=== PATIENT | male | born 1950 | race American Indian/Alaskan Native ===

== ENCOUNTER 2018-09-12 10:00 | Outpatient (CLI) | payer MEDICARE ==
[2018-09-09 11:24] VITALS: BP 156/78
--- NOTE | 2018-09-09 13:34 | Anesthesia Consultation ---
Anesthesia Consult and Med Hx - Airway Anesthetic Teeth Evaluation: Poor, Partials ROM Head & Neck: Adequate Mental/Hyoid Distance: Adequate Mallampati Class: Class II Intubation Access Assessment: Possibly Difficult (large mckeon) - Pulmonary Exam CTA: Yes (diminshed bilaterally) - Cardiac Exam Cardiac Exam: RRR - Pre-Operative Health Status ASA Pre-Surgery Classification: ASA3 Proposed Anesthetic Plan: General Nerve Block: Adductor canal - Pulmonary Hx Smoking: Yes (STOPPED X 6 YRS) Hx Asthma: No Hx Respiratory Symptoms: No SOB: No Hx Sleep Apnea: No (BELTRAN PRE SCREEN HIGH RISK) - Cardiovascular System Hx Hypertension: Yes (instructed to take usual meds night before surgery and clonidine DOS) Hx Heart Attack/AMI: No Hx Percutaneous Transluminal Coronary Angioplasty (PTCA): No - Central Nervous System Hx Seizures: No CVA: No Hx Psychiatric Problems: No - Gastrointestinal Hx Gastroesophageal Reflux Disease: Yes - Endocrine Hx Renal Disease: No Hx Liver Disease: No Hx Insulin Dependent Diabetes: Yes (Takes 65units qHS. Instructed to take 40units night before surgery) Hx Thyroid Disease: No - Other Systems Hx Alcohol Use: No Hx Substance Use: No Hx Cancer: Yes (PROSTATE) Hx Obesity: Yes - Additional Comments Anesthesia Medical History Comments: No hx anesthetic complications.
[~2018-09-12 10:00] MED LIST: LACTATED RINGERS 1,000 ML IV SCH; VERSED IV NR
== END 2018-09-12 23:59 | disposition home or self-care (01) ==
LOC: LAB 10:00 → EDSTATUS 11:45 → LAB 23:59
PROVIDERS: ATTEND Orthopaedic Surgery
DX: I10 Essential (primary) hypertension (principal); E13.9 Other specified diabetes mellitus without complications; Z87.891 Personal history of nicotine dependence
CPT/HCPCS: 87116

== ENCOUNTER 2019-11-04 13:34 | Emergency (ER) | payer MEDICARE ==
--- NOTE | 2019-11-04 15:29 | Event Note ---
ED Screening Note Date of service: 11/04/19 Time: 15:28 ED Screening Note: 69 y o male presents cc of abd with vomitting x 2 days This initial assessment/diagnostic orders/clinical plan/treatment(s) is/are subject to change based on patients health status, clinical progression and re-assessment by fellow clinical providers in the ED. Further treatment and workup at subsequent clinical providers discretion. Patient/guardian urged not to elope from the ED as their condition may be serious if not clinically assessed and managed. Initial orders include: labs main eval
[2019-11-04 17:17] LABS: Basophils % (Auto) 0.2 % (0.0-1.8); Eosinophils # (Auto) 0.4 K/mm3 (0.0-0.4); Eosinophils % (Auto) 2.8 % (0.0-4.3); Hematocrit 35.3 % (35.5-45.6); Hemoglobin 11.8 gm/dl (11.8-15.2); Lymphocytes # (Auto) 1.4 K/mm3 (1.2-5.4); Lymphocytes % (Auto) 10.1 % (13.4-35.0); Mean Corpuscular HGB Conc 34 % (32-34); Mean Corpuscular Volume 90 fl (84-94); Monocytes # (Auto) 1.7 K/mm3 (0.0-0.8); Monocytes % (Auto) 11.6 % (0.0-7.3); Platelet Count 296 K/mm3 (140-440); Red Blood Count 3.93 M/mm3 (3.65-5.03); Red Cell Distribution Width 14.2 % (13.2-15.2)
[2019-11-04 17:33] LABS: Albumin 3.1 g/dL (3.9-5); Calcium 9.1 mg/dL (8.4-10.2)
[2019-11-04] MEDS ORDERED: cloNIDine 0.2 MG TAB PO ONE (20:09)
--- NOTE | 2019-11-04 23:22 | Emergency Department Report ---
HPI - General Chief Complaint: Nausea/Vomiting/Diarrhea Time Seen by Provider: 11/04/19 23:08 - HPI HPI: 69-year-old -[place] male presents to the emergency department with a complaint of a 5-day history of nausea, vomiting, diarrhea and hiccups. Patient also said that he had a subjective fever but that has since resolved. He has some mild abdominal soreness from the vomiting. He took some [id number] antidiarrheal medication for his symptoms. He has a past medical history of hypertension, diabetes, GERD, arthritis. The patient presents with very elevated blood pressure but admits that he did not take any of his 5 blood pressure medications this morning because he knew he was coming to the emergency department. His primary care physician is a Dr. Keith Pacheco. No sick contacts at home. No recent international travel. Currently the patient says that he is feeling improved. ED Past Medical Hx - Past Medical History Previous Medical History?: Yes Hx Hypertension: Yes (instructed to take usual meds night before surgery and clonidine DOS) Hx Heart Attack/AMI: No Hx Diabetes: Yes Hx GERD: Yes Hx Liver Disease: No Hx Renal Disease: No Hx Arthritis: Yes Hx Seizures: No Hx Asthma: No Hx HIV: No - Social History Smoking Status: Never Smoker Substance Use Type: None - Medications Home Medications: Home Medications Medication Instructions Recorded Confirmed Last Taken Type Lantus Solostar 65 units SQ BID 10/27/15 09/01/18 03/11/16 History glipiZIDE [Glucotrol] 10 mg PO QDAY 10/27/15 09/01/18 03/11/16 History amLODIPine [Norvasc] 10 mg PO DAILY 03/01/16 09/01/18 03/12/16 05:00 History lisinopriL [Zestril TAB] 40 mg PO DAILY 03/01/16 09/01/18 03/12/16 05:00 History Colchicine 0.6 mg PO PRN PRN 09/01/18 09/01/18 Unknown History Gabapentin [Neurontin] 600 mg PO DAILY 09/01/18 09/01/18 Unknown History Insulin Lispro [HumaLOG VIAL] 0 units SQ TID 09/01/18 09/01/18 Unknown History Metoprolol [Lopressor TAB] 50 mg PO BID 09/01/18 09/01/18 Unknown History Pioglitazone HCl [Actos] 30 mg PO DAILY 09/01/18 09/01/18 Unknown History Pravastatin [Pravachol] 40 mg PO QHS 09/01/18 09/01/18 Unknown History cloNIDine [Catapres] 0.2 mg PO BID 09/01/18 09/01/18 Unknown History hydroCHLOROthiazide [HCTZ] 25 mg PO QDAY 09/01/18 09/01/18 Unknown History Omeprazole 20 mg PO QDAY #20 capsule. 11/05/19 Unknown Rx Ondansetron [Zofran Odt] 4 mg PO Q8HR PRN #12 tab.rapdis 11/05/19 Unknown Rx ED Review of Systems ROS: Stated complaint: STOMACH VIRUS Other details as noted in HPI Comment: All other systems reviewed and negative Constitutional: denies: chills, fever Eyes: denies: eye pain, vision change ENT: denies: ear pain, throat pain Respiratory: denies: cough, shortness of breath Cardiovascular: denies: chest pain, palpitations Gastrointestinal: abdominal pain, nausea, vomiting, diarrhea Genitourinary: denies: dysuria, discharge Musculoskeletal: denies: back pain, arthralgia Skin: denies: rash, lesions Neurological: denies: headache, weakness Physical Exam - Physical Exam Vital Signs: Vital Signs 11/04/19 11/04/19 11/04/19 15:26 20:06 20:09 Temperature 97.8 F 98.8 F Pulse Rate 104 H 98 H Respiratory 20 20 Rate Blood Pressure 199/103 230/121 Blood Pressure 193/101 [Right] O2 Sat by Pulse 100 96 Oximetry 11/04/19 20:16 Temperature Pulse Rate 98 H Respiratory Rate Blood Pressure 230/121 Blood Pressure [Right] O2 Sat by Pulse Oximetry Physical Exam: GENERAL: The patient is well-developed well-nourished. HENT: Normocephalic. Atraumatic. Patient has moist mucous membranes. EYES: Extraocular motions are intact. NECK: Supple. Trachea is midline. CHEST/LUNGS: Clear to auscultation. There is no respiratory distress noted. HEART/CARDIOVASCULAR: Regular. There is no tachycardia. There is no murmur. ABDOMEN: Abdomen is soft, nontender. Patient has normal bowel sounds. SKIN: Skin is warm and dry. NEURO: The patient is awake, alert, and oriented. The patient is cooperative. The patient has no focal neurologic deficits. Normal speech. MUSCULOSKELETAL: There is no tenderness or deformity. There is no evidence of acute injury. ED Course Vital Signs 11/04/19 11/04/19 11/04/19 15:26 20:06 20:09 Temperature 97.8 F 98.8 F Pulse Rate 104 H 98 H Respiratory 20 20 Rate Blood Pressure 199/103 230/121 Blood Pressure 193/101 [Right] O2 Sat by Pulse 100 96 Oximetry 11/04/19 20:16 Temperature Pulse Rate 98 H Respiratory Rate Blood Pressure 230/121 Blood Pressure [Right] O2 Sat by Pulse Oximetry ED Medical Decision Making - Lab Data Result diagrams: 11/04/19 17:00 11/04/19 17:00 - Radiology Data Radiology results: image reviewed interpreted by me: Abdominal x-ray shows nonspecific nonobstructive bowel gas. - Medical Decision Making This patient presents with a 5-day history of some nausea, vomiting, diarrhea, intermittent abdominal pain and the patient complains of some hiccups. Patient has been in the emergency department for close to 11 hours. There is been no further nausea or vomiting. Since I have been seeing this patient there has not been any consistent hiccups. The patient also presented with extremely elevated blood pressure as he had not taken any of his 5 antihypertensive medications today. He received some clonidine through triage and his blood pres sure came down to a much more reasonable level. The patient's labs were mostly unremarkable except for some renal insufficiency and mild hypokalemia. He was given some potassium chloride. Abdominal x-ray shows nonspecific nonobstructive bowel gas. The patient was reevaluated multiple times her multiple hours and says he is feeling improved. He will be discharged home to follow-up with his primary care physician and has also been told that he will need to most likely see a teacher physically impaired. Patient will return to the emergency department with any worsening of his symptoms or any acute distress. He understands and agrees with the plan. Critical Care Time: No Critical care attestation.: If time is entered above; I have spent that time in minutes in the direct care of this critically ill patient, excluding procedure time. ED Disposition Clinical Impression: Renal insufficiency HTN (hypertension) Qualifiers: Hypertension type: essential hypertension Qualified Code(s): I10 - Essential (primary) hypertension Nausea & vomiting Qualifiers: Vomiting type: unspecified Vomiting Intractability: non-intractable Qualified Code(s): R11.2 - Nausea with vomiting, unspecified Diarrhea Qualifiers: Diarrhea type: unspecified type Qualified Code(s): R19.7 - Diarrhea, unspecified Abdominal pain Qualifiers: Abdominal location: epigastric Qualified Code(s): R10.13 - Epigastric pain Disposition: TO HOME OR SELFCARE Is pt being admited?: No Condition: Stable Instructions: Acute Nausea and Vomiting (ED), Acute Diarrhea (ED), Abdominal Pain (ED), Hypertension (ED) Additional Instructions: Please follow-up with your primary care physician in the next few days. Return to the emergency department with any worsening of your symptoms, intractable vomiting, or with any acute distress. Take your blood pressure medications as prescribed. Try and stay away from foods that are high in salt and caffeinated products. Keep a blood pressure log. Take your diabetes medications as prescribed. Please follow-up with a teacher physically impaired regarding your renal insufficiency. I have given you a referral for a local teacher physically impaired, Dr. Mae. Prescriptions: Omeprazole 20 mg PO QDAY #20 capsule. Ondansetron [Zofran Odt] 4 mg PO Q8HR PRN #12 tab.rapdis PRN Reason: Nausea Referrals: [facility] [Provider Group] - 3-5 Days YAZMIN PACHECO DO [Primary Care Provider] - 3-5 Days DESTINY MAE MD [Staff Physician] - 3-5 Days Time of Disposition: 00:55
[2019-11-04] MEDS ORDERED: POTASSIUM CHLORIDE ER 20 MEQ TAB PO ONE (23:25)
--- NOTE | 2019-11-05 00:45 | XRay Report ---
ABDOMEN 2 VIEWS INDICATION / CLINICAL INFORMATION: Abd pain. COMPARISON: None available. FINDINGS: BOWEL: No dilated bowel. FREE AIR / EXTRALUMINAL GAS: None seen. CALCIFICATIONS: No significant abnormal calcifications. ADDITIONAL FINDINGS: None. LUNGS: Visualized lungs show no significant abnormality. SKELETAL STRUCTURES: No significant abnormality. IMPRESSION: 1. No significant abnormality. Signer Name: Vinicio Velasquez MD Signed: 11/05/2019 12:41 AM Workstation Name: [id number]
[2019-11-05 01:16] VITALS: BP 166/98
== END 2019-11-05 01:21 | disposition home or self-care (01) ==
LOC: ED 13:34
DX: N28.9 Disorder of kidney and ureter, unspecified (principal); I10 Essential (primary) hypertension; R11.2 Nausea with vomiting, unspecified; R19.7 Diarrhea, unspecified; R10.9 Unspecified abdominal pain; E11.9 Type 2 diabetes mellitus without complications; K21.9 Gastro-esophageal reflux disease without esophagitis; M19.91 Primary osteoarthritis, unspecified site; Z79.899 Other long term (current) drug therapy; Z79.4 Long term (current) use of insulin
CPT/HCPCS: 36415; 74019; 80053; 82962; 83690; 85025

== ENCOUNTER 2020-12-08 22:53 | Inpatient (IN) | payer MEDICARE ==
[2020-12-09 00:05] LABS: Basophils # (Auto) 0.1 K/mm3 (0.0-0.1); Basophils % (Auto) 0.4 % (0.0-1.8); Eosinophils # (Auto) 0.1 K/mm3 (0.0-0.4); Eosinophils % (Auto) 0.8 % (0.0-4.3); Hematocrit 29.1 % (35.5-45.6); Hemoglobin 9.8 gm/dl (11.8-15.2); Lymphocytes # (Auto) 0.7 K/mm3 (1.2-5.4); Lymphocytes % (Auto) 5.1 % (13.4-35.0); Mean Corpuscular HGB Conc 34 % (32-34); Mean Corpuscular Volume 90 fl (84-94); Monocytes # (Auto) 0.9 K/mm3 (0.0-0.8); Monocytes % (Auto) 5.9 % (0.0-7.3); Platelet Count 208 K/mm3 (140-440); Red Blood Count 3.23 M/mm3 (3.65-5.03); Red Cell Distribution Width 14.8 % (13.2-15.2)
--- NOTE | 2020-12-09 00:14 | XRay Report ---
CHEST 2 VIEWS INDICATION: SUJEY. COMPARISON: None FINDINGS: SUPPORT DEVICES: None. HEART: Within normal limits. LUNGS/PLEURA: Mild patchy multifocal airspace disease with central peribronchial cuffing and a trace amount of fluid along the minor fissure. Findings could at least in part reflect underlying edema. No pleural effusion. No pneumothorax. ADDITIONAL FINDINGS: None. IMPRESSION: 1. Pulmonary findings as above. Signer Name: Henry Guajardo MD Signed: 12/09/2020 12:09 AM Workstation Name: [id number]
[2020-12-09 00:21] LABS: Albumin 3.9 g/dL (3.9-5)
[2020-12-09] MEDS ORDERED: FUROSEMIDE 40 MG/4 ML INJ IV ONE (01:12)
--- NOTE | 2020-12-09 01:14 | Emergency Department Report ---
ED Shortness of Breath HPI - General Chief Complaint: Dyspnea/Respdistress Stated Complaint: SUJEY/BODY FLUID Time Seen by Provider: 12/09/20 01:01 Source: patient Mode of arrival: Ambulatory Limitations: No Limitations - History of Present Illness Initial Comments: Patient is a 70-year-old male that presents emergency room with complaints of shortness of breath. Patient states he was eating fish and became short of breath. Patient states his symptoms started at 7 PM. Patient states he is also having dyspnea on exertion. Patient states his symptoms are better with rest and worse with exertion. Patient states he does not have a history of CHF but has history of hypertension, diabetes, chronic kidney disease stage III, insulin dependency, hyperlipidemia. Patient also complains of lower extremity swelling. Patient denies chest pain. Patient denies leg pain. Patient states he was having epigastric pain but that has resolved. Patient denies recent travel. Patient denies recent international travel. Patient denies exposure to the novel coronavirus. Patient denies sick contacts. Patient denies fever and chills. Patient denies cough. Patient denies diarrhea. Patient denies coming in contact with anybody with symptoms of the novel coronavirus. Complaint: shortness of breath -: Sudden Severity: severe Consistency: constant Improves With: rest Worsens With: exertion Known History Of: congestive heart failure Treatments Prior to Arrival: none - Related Data Home Oxygen Therapy: No Home Medications Medication Instructions Recorded Confirmed Last Taken Lantus Solostar 65 units SQ BID 10/27/15 09/01/18 03/11/16 glipiZIDE [Glucotrol] 10 mg PO QDAY 10/27/15 09/01/18 03/11/16 amLODIPine [Norvasc] 10 mg PO DAILY 03/01/16 09/01/18 03/12/16 05:00 lisinopriL [Zestril TAB] 40 mg PO DAILY 03/01/16 09/01/18 03/12/16 05:00 Colchicine 0.6 mg PO PRN PRN 09/01/18 09/01/18 Unknown Gabapentin [Neurontin] 600 mg PO DAILY 09/01/18 09/01/18 Unknown Insulin Lispro [HumaLOG VIAL] 0 units SQ TID 09/01/18 09/01/18 Unknown Metoprolol [Lopressor TAB] 50 mg PO BID 09/01/18 09/01/18 Unknown Pioglitazone HCl [Actos] 30 mg PO DAILY 09/01/18 09/01/18 Unknown Pravastatin [Pravachol] 40 mg PO QHS 09/01/18 09/01/18 Unknown cloNIDine [Catapres] 0.2 mg PO BID 09/01/18 09/01/18 Unknown hydroCHLOROthiazide [HCTZ] 25 mg PO QDAY 09/01/18 09/01/18 Unknown Previous Rx's Medication Instructions Recorded Last Taken Type Omeprazole 20 mg PO QDAY #20 capsule. 11/05/19 Unknown Rx Ondansetron [Zofran Odt] 4 mg PO Q8HR PRN #12 tab.rapdis 11/05/19 Unknown Rx Allergies Allergy/AdvReac Type Severity Reaction Status Date / Time No Known Allergies Allergy Verified 09/01/18 16:18 ED Review of Systems ROS: Stated complaint: SUJEY/BODY FLUID Other details as noted in HPI Constitutional: denies: chills, fever Eyes: denies: eye pain, eye discharge, vision change ENT: denies: ear pain, throat pain Respiratory: shortness of breath, SOB with exertion, SOB at rest. denies: cough, wheezing Cardiovascular: dyspnea on exertion. denies: chest pain, palpitations Endocrine: no symptoms reported Gastrointestinal: denies: abdominal pain, nausea, diarrhea Genitourinary: denies: urgency, dysuria Musculoskeletal: denies: back pain, joint swelling, arthralgia Skin: denies: rash, lesions Neurological: denies: headache, weakness, paresthesias Psychiatric: denies: anxiety, depression Hematological/Lymphatic: denies: easy bleeding, easy bruising ED Past Medical Hx - Past Medical History Previous Medical History?: Yes Hx Hypertension: Yes (instructed to take usual meds night before surgery and clonidine DOS) Hx Heart Attack/AMI: No Hx Diabetes: Yes Hx GERD: Yes Hx Liver Disease: No Hx Renal Disease: No Hx Arthritis: Yes Hx Seizures: No Hx Asthma: No Hx HIV: No - Surgical History Past Surgical History?: No - Family History Family history: no significant - Social History Smoking Status: Never Smoker Substance Use Type: None - Medications Home Medications: Home Medications Medication Instructions Recorded Confirmed Last Taken Type Lantus Solostar 65 units SQ BID 10/27/15 09/01/18 03/11/16 History glipiZIDE [Glucotrol] 10 mg PO QDAY 10/27/15 09/01/18 03/11/16 History amLODIPine [Norvasc] 10 mg PO DAILY 03/01/16 09/01/18 03/12/16 05:00 History lisinopriL [Zestril TAB] 40 mg PO DAILY 03/01/16 09/01/18 03/12/16 05:00 History Colchicine 0.6 mg PO PRN PRN 09/01/18 09/01/18 Unknown History Gabapentin [Neurontin] 600 mg PO DAILY 09/01/18 09/01/18 Unknown History Insulin Lispro [HumaLOG VIAL] 0 units SQ TID 09/01/18 09/01/18 Unknown History Metoprolol [Lopressor TAB] 50 mg PO BID 09/01/18 09/01/18 Unknown History Pioglitazone HCl [Actos] 30 mg PO DAILY 09/01/18 09/01/18 Unknown History Pravastatin [Pravachol] 40 mg PO QHS 09/01/18 09/01/18 Unknown History cloNIDine [Catapres] 0.2 mg PO BID 09/01/18 09/01/18 Unknown History hydroCHLOROthiazide [HCTZ] 25 mg PO QDAY 09/01/18 09/01/18 Unknown History Omeprazole 20 mg PO QDAY #20 capsule. 11/05/19 Unknown Rx Ondansetron [Zofran Odt] 4 mg PO Q8HR PRN #12 tab.rapdis 11/05/19 Unknown Rx ED Physical Exam - General Limitations: No Limitations General appearance: alert, in no apparent distress - Head Head exam: Present: atraumatic, normocephalic - Eye Eye exam: Present: normal appearance - ENT ENT exam: Present: mucous membranes moist - Neck Neck exam: Present: normal inspection - Respiratory Respiratory exam: Present: decreased breath sounds. Absent: respiratory distress - Cardiovascular Cardiovascular Exam: Present: regular rate, normal rhythm. Absent: systolic murmur, diastolic murmur, rubs, gallop - GI/Abdominal GI/Abdominal exam: Present: soft, normal bowel sounds - Rectal Rectal exam: Present: deferred - Extremities Exam Extremities exam: Present: normal inspection - Back Exam Back exam: Present: normal inspection - Neurological Exam Neurological exam: Present: alert, oriented X3 - Psychiatric Psychiatric exam: Present: normal affect, normal mood - Skin Skin exam: Present: warm, dry, intact, normal color. Absent: rash ED Course Vital Signs 12/08/20 12/09/20 12/09/20 23:15 01:16 01:31 Temperature 97.7 F 97.8 F Pulse Rate 83 77 78 Respiratory 18 21 22 Rate Blood Pressure 179/89 189/95 Blood Pressure 189/95 [Left] O2 Sat by Pulse 91 100 99 Oximetry 12/09/20 12/09/20 12/09/20 02:01 02:30 02:44 Temperature Pulse Rate 76 81 Respiratory 26 H Rate Blood Pressure 189/95 237/108 241/106 Blood Pressure [Left] O2 Sat by Pulse 100 92 Oximetry 12/09/20 04:38 Temperature 98.3 F Pulse Rate 82 Respiratory 32 H Rate Blood Pressure Blood Pressure 189/89 [Left] O2 Sat by Pulse 95 Oximetry - Reevaluation(s) Reevaluation #1: I discussed all results with patient. I discussed plan of care with patient. Patient agrees with plan of care and admission. Patient to be admitted to the hospitalist service. 12/09/20 02:01 - Consultations Consultation #1: Hospitalist consulted for admission. Hospitalist to admit patient. 12/09/20 02:07 Consultation #2: Infectious disease consulted. 12/09/20 05:27 - EJ/Peripheral Line Neck R Time Out Performed: Yes Indications: nurses unable to establis Skin Cleansed in Sterile Fashion: Yes Size: 18 Dressing Placed: Tegaderm, tape Patient Tolerated Procedure: well, no complications ED Medical Decision Making - Lab Data Result diagrams: 12/08/20 23:41 12/09/20 04:25 - EKG Data -: EKG Interpreted by Me EKG shows normal: sinus rhythm, intervals, QRS complexes, ST-T waves Rate: normal - EKG Data Interpretation: other (Left axis deviation) - Radiology Data Radiology results: report reviewed, image reviewed interpreted by me: Chest x-ray: Bilateral pneumonia and ChF changes, no pneumothorax, no foreign body, no osseous findings. CHEST 2 VIEWS INDICATION: SUJEY. COMPARISON: None FINDINGS: SUPPORT DEVICES: None. HEART: Within normal limits. LUNGS/PLEURA: Mild patchy multifocal airspace disease with central peribronchial cuffing and a trace amount of fluid along the minor fissure. Findings could at least in part reflect underlying edema. No pleural effusion. No pneumothorax. ADDITIONAL FINDINGS: None. IMPRESSION: 1. Pulmonary findings as above. - Medical Decision Making Patient is a 70-year-old male who presents emergency room with difficulty breathing and respiratory distress and hypoxia. Patient has a history of CHF. Patient found to have rales on initial evaluation. Patient in triage found to be hypoxic and placed on oxygen. Patient required oxygen throughout the ER stay. Patient had a chest x-ray which shows pulmonary edema and bilateral pneumonia. Patient had a Covid panel done. Patient's labs were essentially unremarkable except for elevated Covid markers and worsening acute on chronic renal failure, abnormal,, anemia, elevated WBC, elevated troponin. Troponin is most likely elevated secondary to renal. Patient admitted to the hospital service for further evaluation treatment into the intermediate ICU. While in ER, the nurses were unable to obtain a peripheral IV and a right EJ was placed. Critical care time documented due to the multiple reassessments, prolonged time at the bedside, interpretation of diagnostics and labs. - Differential Diagnosis CHF, new onset, renal failure, pneumonia, Covid, Critical Care Time: Yes Critical care time in (mins) excluding proc time.: 35 Critical care attestation.: If time is entered above; I have spent that time in minutes in the direct care of this critically ill patient, excluding procedure time. Critical Care Time: 35 MINUTES ED Disposition Clinical Impression: SOB (shortness of breath) Respiratory failure Qualifiers: Chronicity: acute Respiratory failure complication: hypoxia Qualified Code(s): J96.01 - Acute respiratory failure with hypoxia Renal failure (ARF), acute on chronic Qualifiers: Acute renal failure type: unspecified Chronic kidney disease stage: unspecified stage Qualified Code(s): N17.9 - Acute kidney failure, unspecified; N18.9 - Chronic kidney disease, unspecified Pneumonia Qualifiers: Pneumonia type: due to unspecified organism Laterality: bilateral Lung location: unspecified part of lung Qualified Code(s): J18.9 - Pneumonia, unspecified organism CHF (congestive heart failure) Qualifiers: Heart failure type: unspecified Heart failure chronicity: acute on chronic Qualified Code(s): I50.9 - Heart failure, unspecified Disposition: 09 OP ADMIT IP TO THIS HOSP Is pt being admited?: Yes Does the pt Need Aspirin: No Condition: Critical Time of Disposition: 01:25
[2020-12-09] MEDS ORDERED: COLCHICINE 0.6 MG PO PRN (02:06)
[2020-12-09] MEDS ORDERED: hydrALAZINE 20 MG/1 ML INJ IV PRN ×2 (02:10→09:30)
[2020-12-09] MEDS ORDERED: DEXTROSE 50% IN WATER (25GM) 50 ML SYRINGE IV PRN (02:11)
--- NOTE | 2020-12-09 02:16 | History and Physical Report ---
History of Present Illness Date of examination: 12/09/20 Date of admission: 12/09/20 Chief complaint: Shortness of breath History of present illness: 70-year-old male with past medical history of hypertension, diabetes, chronic kidney disease stage III, hyperlipidemia was brought to the emergency room with complaints of shortness of breath. Patient states he was eating fish and became short of breath. Patient states his symptoms started at 7 PM. Patient denies any history of CHF. Patient states he is also having dyspnea on exertion. Patient states his symptoms are better with rest and worse with exertion. Patient also complains of lower extremity swelling. Patient denies chest pain. Patient denies leg pain. Patient states he was having epigastric pain but that has resolved. In the emergency room patient is found to have acute CHF exacerbation. Also patient troponin is 0.108 Past History Past Medical History: diabetes, hypertension, hyperlipidemia, renal failure Medications and Allergies Allergies Allergy/AdvReac Type Severity Reaction Status Date / Time No Known Allergies Allergy Verified 09/01/18 16:18 Home Medications Medication Instructions Recorded Confirmed Last Taken Type Lantus Solostar 65 units SQ BID 10/27/15 09/01/18 03/11/16 History glipiZIDE [Glucotrol] 10 mg PO QDAY 10/27/15 09/01/18 03/11/16 History amLODIPine [Norvasc] 10 mg PO DAILY 03/01/16 09/01/18 03/12/16 05:00 History lisinopriL [Zestril TAB] 40 mg PO DAILY 03/01/16 09/01/18 03/12/16 05:00 History Colchicine 0.6 mg PO PRN PRN 09/01/18 09/01/18 Unknown History Gabapentin [Neurontin] 600 mg PO DAILY 09/01/18 09/01/18 Unknown History Insulin Lispro [HumaLOG VIAL] 0 units SQ TID 09/01/18 09/01/18 Unknown History Metoprolol [Lopressor TAB] 50 mg PO BID 09/01/18 09/01/18 Unknown History Pioglitazone HCl [Actos] 30 mg PO DAILY 09/01/18 09/01/18 Unknown History Pravastatin [Pravachol] 40 mg PO QHS 09/01/18 09/01/18 Unknown History cloNIDine [Catapres] 0.2 mg PO BID 09/01/18 09/01/18 Unknown History hydroCHLOROthiazide [HCTZ] 25 mg PO QDAY 09/01/18 09/01/18 Unknown History Omeprazole 20 mg PO QDAY #20 capsule. 11/05/19 Unknown Rx Ondansetron [Zofran Odt] 4 mg PO Q8HR PRN #12 tab.rapdis 11/05/19 Unknown Rx Active Meds: Active Medications Amlodipine Besylate (Amlodipine 5 Mg Tab) 10 mg PO DAILY [facility] Aspirin (Aspirin 325 Mg Tab) 325 mg PO QDAY [facility] Atorvastatin Calcium (Atorvastatin 40 Mg Tab) 40 mg PO QHS [facility] Clonidine HCl (Clonidine 0.2 Mg Tab) 0.2 mg PO BID [facility] Dextrose (Dextrose 50% In Water (25gm) 50 Ml Syringe) 50 ml IV Q30MIN PRN; Protocol PRN Reason: Hypoglycemia Furosemide (Furosemide 40 Mg/4 Ml Inj) 40 mg IV BID@0600,1800 [facility] Glipizide (Glipizide 10 Mg Tab) 10 mg PO QDAY [facility] Heparin Sodium (Porcine) (Heparin 5,000 Unit/1 Ml Vial) 5,000 unit SUB-Q Q8HR [facility] Hydralazine HCl (Hydralazine 20 Mg/1 Ml Inj) 10 mg IV Q6H PRN PRN Reason: htn Hydrochlorothiazide (Hydrochlorothiazide 25 Mg Tab) 25 mg PO QDAY [facility] Insulin Human Lispro (Insulin Lispro 100 Unit/Ml) 0 unit SUB-Q ACHS [facility]; Protocol Lisinopril (Lisinopril 20 Mg Tab) 40 mg PO DAILY [facility] Metoprolol Tartrate (Metoprolol Tartrate 50 Mg Tab) 50 mg PO BID [facility] Miscellaneous Medication (Colchicine) 0.6 mg PO PRN PRN PRN Reason: Pain, Moderate (4-6) Miscellaneous Medication (Gabapentin [Neurontin]) 600 mg PO DAILY [facility] Miscellaneous Medication (Lantus Solostar) 65 units SQ BID [facility] Pantoprazole Sodium (Pantoprazole 40 Mg Tab) 40 mg PO QDAC [facility] Review of Systems Cardiovascular: orthopnea, edema, shortness of breath, dyspnea on exertion Respiratory: shortness of breath, dyspnea on exertion Exam - Constitutional Vitals: Temp Pulse Resp BP Pulse Ox 97.8 F 77 21 189/95 100 12/09/20 01:16 12/09/20 01:16 12/09/20 01:16 12/09/20 01:16 12/09/20 01:16 General appearance: Present: no acute distress, well-nourished - EENT Eyes: Present: PERRL ENT: hearing intact, clear oral mucosa - Neck Neck: Present: supple, normal ROM - Respiratory Respiratory effort: normal Respiratory: bilateral: rales - Cardiovascular Heart Sounds: Present: S1 & S2. Absent: rub, click - Extremities Extremities: pulses symmetrical Extremity abnormal: edema Peripheral Pulses: within normal limits - Abdominal General gastrointestinal: Present: soft, non-tender, non-distended, normal bowel sounds Male genitourinary: Present: normal - Integumentary Integumentary: Present: clear, warm, dry - Musculoskeletal Musculoskeletal: gait normal, strength equal bilaterally - Psychiatric Psychiatric: appropriate mood/affect, intact judgment & insight - Neurologic Neurologic: CNII-XII intact, moves all extremities HEART Score - HEART Score Age: > 65 Risk factors: > 3 risk factors or hx of atherosclerotic disease Troponin: Troponin T 0.108 ng/mL (0.00-0.029) H* 12/08/20 23:41 Troponin: 1-3x normal limit Results - Labs CBC & Chem 7: 12/08/20 23:41 12/08/20 23:41 Labs: Laboratory Last Values WBC 14.4 K/mm3 (4.5-11.0) H 12/08/20 23:41 RBC 3.23 M/mm3 (3.65-5.03) L 12/08/20 23:41 Hgb 9.8 gm/dl (11.8-15.2) L 12/08/20 23:41 Hct 29.1 % (35.5-45.6) L 12/08/20 23:41 MCV 90 fl (84-94) 12/08/20 23:41 MCH 30 pg (28-32) 12/08/20 23:41 MCHC 34 % (32-34) 12/08/20 23:41 RDW 14.8 % (13.2-15.2) 12/08/20 23:41 Plt Count 208 K/mm3 (140-440) 12/08/20 23:41 Lymph % (Auto) 5.1 % (13.4-35.0) L 12/08/20 23:41 [place] % (Auto) 5.9 % (0.0-7.3) 12/08/20 23:41 Eos % (Auto) 0.8 % (0.0-4.3) 12/08/20 23:41 Baso % (Auto) 0.4 % (0.0-1.8) 12/08/20 23:41 Lymph # (Auto) 0.7 K/mm3 (1.2-5.4) L 12/08/20 23:41 [place] # (Auto) 0.9 K/mm3 (0.0-0.8) H 12/08/20 23:41 Eos # (Auto) 0.1 K/mm3 (0.0-0.4) 12/08/20 23:41 Baso # (Auto) 0.1 K/mm3 (0.0-0.1) 12/08/20 23:41 Seg Neutrophils % 87.8 % (40.0-70.0) H 12/08/20 23:41 Seg Neutrophils # 12.6 K/mm3 (1.8-7.7) H 12/08/20 23:41 Sodium 138 mmol/L (137-145) 12/08/20 23:41 Potassium 4.5 mmol/L (3.6-5.0) 12/08/20 23:41 Chloride 105.6 mmol/L (98-107) 12/08/20 23:41 Carbon Dioxide 20 mmol/L (22-30) L 12/08/20 23:41 Anion Gap 17 mmol/L 12/08/20 23:41 BUN 36 mg/dL (9-20) H 12/08/20 23:41 Creatinine 4.1 mg/dL (0.8-1.3) H 12/08/20 23:41 Estimated GFR 17 ml/min 12/08/20 23:41 BUN/Creatinine Ratio 9 % 12/08/20 23:41 Glucose 247 mg/dL (75-100) H 12/08/20 23:41 Calcium 8.0 mg/dL (8.4-10.2) L 12/08/20 23:41 Total Bilirubin 0.20 mg/dL (0.1-1.2) 12/08/20 23:41 AST 49 units/L (5-40) H 12/08/20 23:41 ALT 60 units/L (7-56) H 12/08/20 23:41 Alkaline Phosphatase 93 units/L (35-129) 12/08/20 23:41 Troponin T 0.108 ng/mL (0.00-0.029) H* 12/08/20 23:41 Total Protein 7.5 g/dL (6.3-8.2) 12/08/20 23:41 Albumin 3.9 g/dL (3.9-5) 12/08/20 23:41 Albumin/Globulin Ratio 1.1 % 12/08/20 23:41 - Imaging and Cardiology Chest x-ray: image reviewed Assessment and Plan VTE prophylaxis?: Chemical Plan of care discussed with patient/family: Yes - Patient Problems (1) CHF (congestive heart failure) Current Visit: Yes Status: Acute Qualifiers: Heart failure type: unspecified Heart failure chronicity: acute Qualified Code(s): I50.9 - Heart failure, unspecified Plan to address problem: Admit the patient to the medical telemetry. Put the patient on CHF pathway. Lasix 40 mg IV every 12 hours. Fluid restriction. DuoNeb by nebulizer every 4 hours as needed. Will maintain intake and output chart. Echocardiogram. We consulted cardiology for evaluation (2) Elevated troponin Current Visit: Yes Status: Acute Plan to address problem: Aspirin 325 mg p.o. daily. Lipitor 40 mg p.o. daily. We do the serial cardiac enzyme. We also do echocardiogram and consult cardiology for further evaluation and treatment. Heparin 5000 units subcu every 8 hours (3) Renal failure (ARF), acute on chronic Current Visit: Yes Status: Acute Qualifiers: Acute renal failure type: unspecified Chronic kidney disease stage: unspecified stage Qualified Code(s): N17.9 - Acute kidney failure, unspecified; N18.9 - Chronic kidney disease, unspecified Plan to address problem: We avoid nephrotoxic drugs. Reconsult nephrology for evaluation. Recheck BMP in the morning (4) SOB (shortness of breath) Current Visit: Yes Status: Acute Plan to address problem: Put the patient on CHF pathway. Lasix 40 mg IV every 12 hours. Fluid rest riction. DuoNeb by nebulizer every 4 hours as needed. Will maintain intake and output chart. Echocardiogram. We consulted cardiology for evaluation (5) Diabetes 1.5, managed as type 2 Current Visit: No Status: Chronic Plan to address problem: We will put the patient insulin sliding scale. We will continue the home Lantus. Recheck BMP in the morning. Diabetic education (6) HTN (hypertension) Current Visit: No Status: Chronic Qualifiers: Hypertension type: essential hypertension Qualified Code(s): I10 - Essential (primary) hypertension Plan to address problem: Hydralazine 10 mg IV every 6 hours as needed. We will continue the home hype rtension medication. We monitor the blood pressure closely (7) DVT prophylaxis Current Visit: Yes Status: Acute Plan to address problem: Heparin 5000 units subcu every 8 hours for DVT prophylaxis. Protonix 40 mg p.o. daily for GI prophylaxis. Patient is a full code
[2020-12-09] MEDS ORDERED: cefTRIAXone/NS 2 GM/100 ML 2 GM/100 ML BAG IV ONE (02:24)
[2020-12-09] MEDS ORDERED: dexAMETHasone 4 MG/ML VIAL IV ONE (02:25)
[2020-12-09] MEDS ORDERED: COLCHICINE 0.6 MG TAB PO PRN (02:25)
[2020-12-09] MEDS ORDERED: hydrALAZINE 20 MG/1 ML INJ IV ONE (02:34)
[2020-12-09 02:56] LABS: Chol/HDL Ratio 4.29 %
[2020-12-09] MEDS ORDERED: AZITHROMYCIN/NS 500 MG/250 ML 500 MG/250 ML BAG IV SCH (03:00)
[2020-12-09] MEDS: FUROSEMIDE 40 MG/4 ML INJ IV SCH ×2 (05:32→17:03)
[2020-12-09] MEDS: HEPARIN 5,000 UNIT/1 ML VIAL SUB-Q SCH ×3 (05:33→22:47)
[2020-12-09 05:35] LABS: C-Reactive Protein 1.2 mg/dL (0.00-1.30)
--- NOTE | 2020-12-09 08:35 | Electrocardiograph Report ---
[facility] Test Date: 2020-12-08 Test Time: 23:29:39 Pat Name: KIANA KAHN Department: Room: A264 1 Gender: M Tetryl Wringer Operator: [id number] : [id number] Requested By: MARIE GORDON III Order Number: [id number] Reading MD: Rudolph Verdin Measurements Intervals [place] Rate: 80 P: 62 WY: 187 QRS: -32 QRSD: 92 T: 118 QT: 408 QTc: 469 Interpretive Statements Sinus rhythm Left axis deviation Abnormal T, consider ischemia, lateral leads No previous ECG available for comparison Electronically Signed On 12-09-2020 8:35:44 EDT by Rudolph Verdin
[2020-12-09] MEDS: INSULIN GLARGINE 100 UNITS/ML SUB-Q SCH ×2 (09:07→22:47)
[2020-12-09] MEDS: glipiZIDE 10 MG TAB PO SCH (09:08)
[2020-12-09] MEDS: ASPIRIN 325 MG TAB PO SCH (09:08)
[2020-12-09] MEDS: PANTOPRAZOLE 40 MG TAB PO SCH (09:08)
[2020-12-09] MEDS: METOPROLOL TARTRATE 50 MG TAB PO SCH ×2 (09:08→22:46)
[2020-12-09] MEDS: GABAPENTIN 300 MG CAP PO SCH (09:09)
[2020-12-09] MEDS: INSULIN LISPRO 100 UNIT/ML SUB-Q SCH ×4 (09:09→22:47)
[2020-12-09] MEDS: amLODIPine 10 MG TAB PO SCH (09:09)
--- NOTE | 2020-12-09 09:09 | Progress Note ---
Assessment and Plan Assessment and plan: --Acute hypoxic respiratory failure requiring BiPAP Current Visit: Yes Status: Acute due to fluid overload versus pneumonia IV diuretics, oxygen titrate O2 sats more than 90% BiPAP as needed, DC empiric antibiotics, procalcitonin levels below ID following, consult pulmonary if needed --Possible CHF (congestive heart failure) Current Visit: Yes Status: Acute IV diuretics, input output monitoring, daily weights Low-sodium diet, water restriction Cardiology consult, follow echocardiogram LV function ejection fraction --Nonspecific elevated troponin Current Visit: Yes Status: Acute Serial cardiac enzymes, treat the underlying cause congestive heart failure; fluid overload Cardiology --Acute on chronic kidney disease stage III Current Visit: Yes Status: Acute Vasomotor nephropathy Monitoring function avoid nephrotoxins, gentle hydration Nephrology consulted -- SOB (shortness of breath) Current Visit: Yes Status: Acute Put the patient on CHF pathway. Lasix 40 mg IV every 12 hours. Fluid restriction. DuoNeb by nebulizer every 4 hours as needed. Will maintain intake and output chart. Echocardiogram. 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 We will continue the home Lantus. Recheck BMP in the morning. Diabetic education --Morbid obesity; BMI 40.8 Current Visit: Yes Status: Acute diet modification, exercise as tolerated and weight reduction When medically stable -- HTN (hypertension) Current Visit: No Status: Chronic Plan to address problem: Hydralazine 10 mg IV every 6 hours as needed. We will continue the home hypertension medication. We monitor the blood pressure closely --Full CODE STATUS; --DVT prophylaxis Current Visit: Yes Status: Acute Plan to address problem: Heparin 5000 units subcu every 8 hours for DVT prophylaxis. Closely monitor the patient and adjust the management as needed Plan of care reviewed with the patient and his nurse Critical care time 45 minutes History Interval history: I have seen and examined the patient at the bedside in [facility] this morning Patient's chart and medications reviewed Patient is morbidly obese, complains of shortness of breath, in mild distress PUI on contact and droplet isolation Vital signs reviewed Hospitalist Physical - Constitutional Vitals: Temp Pulse Resp BP Pulse Ox 98.4 F 79 18 191/90 100 12/09/20 07:38 12/09/20 08:32 12/09/20 08:32 12/09/20 08:32 12/09/20 08:32 General appearance: Present: no acute distress, well-nourished - EENT Eyes: Present: PERRL, EOM intact - Neck Neck: Present: supple, normal ROM - Respiratory Respiratory effort: normal Respiratory: bilateral: diminished, rales, negative: rhonchi, wheezing - Cardiovascular Rhythm: regular Heart Sounds: Present: S1 & S2 - Extremities Extremities: no ischemia Extremity abnormal: edema - Abdominal General gastrointestinal: soft, non-tender, non-distended, normal bowel sounds - Integumentary Integumentary: Present: clear, warm - Psychiatric Psychiatric: appropriate mood/affect, cooperative - Neurologic Neurologic: moves all extremities HEART Score - HEART Score Age: > 65 Risk factors: > 3 risk factors or hx of atherosclerotic disease Troponin: Troponin T 0.108 ng/mL (0.00-0.029) H* 12/08/20 23:41 Troponin: 1-3x normal limit Results - Labs CBC & Chem 7: 12/08/20 23:41 12/09/20 09:53 Labs: Laboratory Last Values WBC 14.4 K/mm3 (4.5-11.0) H 12/08/20 23:41 RBC 3.23 M/mm3 (3.65-5.03) L 12/08/20 23:41 Hgb 9.8 gm/dl (11.8-15.2) L 12/08/20 23:41 Hct 29.1 % (35.5-45.6) L 12/08/20 23:41 MCV 90 fl (84-94) 12/08/20 23:41 MCH 30 pg (28-32) 12/08/20 23:41 MCHC 34 % (32-34) 12/08/20 23:41 RDW 14.8 % (13.2-15.2) 12/08/20 23:41 Plt Count 208 K/mm3 (140-440) 12/08/20 23:41 Lymph % (Auto) 5.1 % (13.4-35.0) L 12/08/20 23:41 [place] % (Auto) 5.9 % (0.0-7.3) 12/08/20 23:41 Eos % (Auto) 0.8 % (0.0-4.3) 12/08/20 23:41 Baso % (Auto) 0.4 % (0.0-1.8) 12/08/20 23:41 Lymph # (Auto) 0.7 K/mm3 (1.2-5.4) L 12/08/20 23:41 [place] # (Auto) 0.9 K/mm3 (0.0-0.8) H 12/08/20 23:41 Eos # (Auto) 0.1 K/mm3 (0.0-0.4) 12/08/20 23:41 Baso # (Auto) 0.1 K/mm3 (0.0-0.1) 12/08/20 23:41 Seg Neutrophils % 87.8 % (40.0-70.0) H 12/08/20 23:41 Seg Neutrophils # 12.6 K/mm3 (1.8-7.7) H 12/08/20 23:41 D-Dimer 722.42 ng/mlDDU (0-234) H 12/09/20 04:25 Sodium 138 mmol/L (137-145) 12/08/20 23:41 Potassium 4.5 mmol/L (3.6-5.0) 12/08/20 23:41 Chloride 105.6 mmol/L (98-107) 12/08/20 23:41 Carbon Dioxide 20 mmol/L (22-30) L 12/08/20 23:41 Anion Gap 17 mmol/L 12/08/20 23:41 BUN 36 mg/dL (9-20) H 12/08/20 23:41 Creatinine 4.1 mg/dL (0.8-1.3) H 12/08/20 23:41 Estimated GFR 17 ml/min 12/08/20 23:41 BUN/Creatinine Ratio 9 % 12/08/20 23:41 Glucose 225 mg/dL (75-100) H 12/09/20 04:25 Calcium 8.0 mg/dL (8.4-10.2) L 12/08/20 23:41 Ferritin 195.4 ng/mL (30.0-300.0) 12/09/20 04:25 Total Bilirubin 0.20 mg/dL (0.1-1.2) 12/08/20 23:41 AST 49 units/L (5-40) H 12/08/20 23:41 ALT 60 units/L (7-56) H 12/08/20 23:41 Alkaline Phosphatase 93 units/L (35-129) 12/08/20 23:41 Lactate Dehydrogenase 345 units/L (91-180) H 12/09/20 04:25 Troponin T 0.108 ng/mL (0.00-0.029) H* 12/08/20 23:41 C-Reactive Protein 1.20 mg/dL (0.00-1.30) 12/09/20 04:25 Total Protein 7.5 g/dL (6.3-8.2) 12/08/20 23:41 Albumin 3.9 g/dL (3.9-5) 12/08/20 23:41 Albumin/Globulin Ratio 1.1 % 12/08/20 23:41 Triglycerides 176 mg/dL (2-149) H 12/08/20 23:41 Cholesterol 202 mg/dL (50-199) H 12/08/20 23:41 LDL Cholesterol Direct 128 mg/dL (50-130) 12/08/20 23:41 HDL Cholesterol 47 mg/dL (40-59) 12/08/20 23:41 Cholesterol/HDL Ratio 4.29 % 12/08/20 23:41 Active Medications - Current Medications Current Medications: Generic Name Dose Route Start Last Admin Trade Name Freq PRN Reason Stop Dose Admin Amlodipine Besylate 10 mg 12/09/20 10:00 Amlodipine 10 Mg Tab PO DAILY [facility] Aspirin 325 mg 12/09/20 10:00 Aspirin 325 Mg Tab PO QDAY [facility] Atorvastatin Calcium 40 mg 12/09/20 22:00 Atorvastatin 40 Mg Tab PO QHS [facility] Clonidine HCl 0.2 mg 12/09/20 10:00 Clonidine 0.2 Mg Tab PO BID [facility] Colchicine 0.6 mg 12/09/20 02:25 Colchicine 0.6 Mg Tab PO QDAY PRN Gout pain Dextrose 50 ml 12/09/20 02:11 Dextrose 50% In Water (25gm) 50 Ml Syringe IV Q30MIN PRN Hypoglycemia Protocol Furosemide 40 mg 12/09/20 06:00 12/09/20 05:32 Furosemide 40 Mg/4 Ml Inj IV 40 mg BID@0600,1800 [facility] Administration Gabapentin 600 mg 12/09/20 10:00 Gabapentin 300 Mg Cap PO DAILY [facility] Glipizide 10 mg 12/09/20 08:00 Glipizide 10 Mg Tab PO QDDIAB [facility] Heparin Sodium (Porcine) 5,000 unit 12/09/20 06:00 12/09/20 05:33 Heparin 5,000 Unit/1 Ml Vial SUB-Q 5,000 unit Q8HR [facility] Administration Hydralazine HCl 10 mg 12/09/20 02:10 Hydralazine 20 Mg/1 Ml Inj IV Q6H PRN htn Hydrochlorothiazide 25 mg 12/09/20 10:00 Hydrochlorothiazide 25 Mg Tab PO QDAY [facility] Azithromycin 500 mg in 250 mls @ 250 mls/hr 12/09/20 03:00 12/09/20 03:57 Zithromax/Ns IV 250 mls/hr Q24H [facility] Administration Insulin Glargine 65 units 12/09/20 10:00 Insulin Glargine 100 Units/Ml SUB-Q BID [facility] Insulin Human Lispro 0 unit 12/09/20 07:30 Insulin Lispro 100 Unit/Ml SUB-Q ACHS [facility] Protocol Metoprolol Tartrate 50 mg 12/09/20 10:00 Metoprolol Tartrate 50 Mg Tab PO BID [facility] Pantoprazole Sodium 40 mg 12/09/20 07:30 Pantoprazole 40 Mg Tab PO QDAC [facility]
[2020-12-09] MEDS: cloNIDine 0.2 MG TAB PO SCH ×2 (09:12→22:46)
[2020-12-09] MEDS ORDERED: INSULIN GLARGINE SQ SCH (10:00)
[2020-12-09] MEDS ORDERED: hydroCHLOROthiazide 25 MG TAB PO SCH (10:00)
[2020-12-09] MEDS ORDERED: LISINOPRIL 20 MG TAB PO SCH (10:00)
[2020-12-09] MEDS ORDERED: NON-FORMULARY EACH (Gabapentin [Neurontin] 600 MG Tablet) PO SCH (10:00)
[2020-12-09 10:28] LABS: Calcium 8.4 mg/dL (8.4-10.2)
--- NOTE | 2020-12-09 11:37 | Consultation ---
History of Present Illness Consult date: 12/09/20 Consult reason: elevated troponin History of present illness: 70-year old male who is admitted for shortness of breath after eating fish. It is unclear if his shortness of breath were related to fish or seafood allergy. Chest x-ray reports patchy airspace disease and is undergoing workup for suspected COVID 19. Currently he is on Bipap therapy, history is unobtainable. A cardiac consultation has been requested for elevated troponin. Initial labs shows multiple metabolic abnormalities including renal failure with a creatinine 4.4, and uncontrolled diabetes, blood glucose of 247. Troponin at 0.108. There were no report of chest pain or palpitations. No reports of prior cardiac history. An ECG done is sinus rhythm, no acute ischemic changes. Past History Past Medical History: diabetes, hypertension, hyperlipidemia, renal failure Medications and Allergies Allergies Allergy/AdvReac Type Severity Reaction Status Date / Time No Known Allergies Allergy Verified 09/01/18 16:18 Home Medications Medication Instructions Recorded Confirmed Last Taken Type Lantus Solostar 65 units SQ BID 10/27/15 09/01/18 03/11/16 History glipiZIDE [Glucotrol] 10 mg PO QDAY 10/27/15 09/01/18 03/11/16 History amLODIPine [Norvasc] 10 mg PO DAILY 03/01/16 09/01/18 03/12/16 05:00 History lisinopriL [Zestril TAB] 40 mg PO DAILY 03/01/16 09/01/18 03/12/16 05:00 History Colchicine 0.6 mg PO PRN PRN 09/01/18 09/01/18 Unknown History Gabapentin [Neurontin] 600 mg PO DAILY 09/01/18 09/01/18 Unknown History Insulin Lispro [HumaLOG VIAL] 0 units SQ TID 09/01/18 09/01/18 Unknown History Metoprolol [Lopressor TAB] 50 mg PO BID 09/01/18 09/01/18 Unknown History Pioglitazone HCl [Actos] 30 mg PO DAILY 09/01/18 09/01/18 Unknown History Pravastatin [Pravachol] 40 mg PO QHS 09/01/18 09/01/18 Unknown History cloNIDine [Catapres] 0.2 mg PO BID 09/01/18 09/01/18 Unknown History hydroCHLOROthiazide [HCTZ] 25 mg PO QDAY 09/01/18 09/01/18 Unknown History Omeprazole 20 mg PO QDAY #20 capsule. 11/05/19 Unknown Rx Ondansetron [Zofran Odt] 4 mg PO Q8HR PRN #12 tab.rapdis 11/05/19 Unknown Rx Active Meds: Active Medications Amlodipine Besylate (Amlodipine 10 Mg Tab) 10 mg PO DAILY [facility] Last Admin: 12/09/20 09:09 Dose: 10 mg Documented by: Aspirin (Aspirin 325 Mg Tab) 325 mg PO QDAY [facility] Last Admin: 12/09/20 09:08 Dose: 325 mg Documented by: Atorvastatin Calcium (Atorvastatin 40 Mg Tab) 40 mg PO QHS [facility] Clonidine HCl (Clonidine 0.2 Mg Tab) 0.2 mg PO BID [facility] Last Admin: 12/09/20 09:12 Dose: 0.2 mg Documented by: Colchicine (Colchicine 0.6 Mg Tab) 0.6 mg PO QDAY PRN PRN Reason: Gout pain Dextrose (Dextrose 50% In Water (25gm) 50 Ml Syringe) 50 ml IV Q30MIN PRN; Protocol PRN Reason: Hypoglycemia Furosemide (Furosemide 40 Mg/4 Ml Inj) 40 mg IV BID@0600,1800 [facility] Last Admin: 12/09/20 05:32 Dose: 40 mg Documented by: Gabapentin (Gabapentin 300 Mg Cap) 600 mg PO DAILY [facility] Last Admin: 12/09/20 09:09 Dose: 600 mg Documented by: Glipizide (Glipizide 10 Mg Tab) 10 mg PO QDDIAB [facility] Last Admin: 12/09/20 09:08 Dose: 10 mg Documented by: Heparin Sodium (Porcine) (Heparin 5,000 Unit/1 Ml Vial) 5,000 unit SUB-Q Q8HR [facility] Last Admin: 12/09/20 05:33 Dose: 5,000 unit Documented by: Hydralazine HCl (Hydralazine 25 Mg Tab) 50 mg PO Q8HR [facility] Hydralazine HCl (Hydralazine 20 Mg/1 Ml Inj) 10 mg IV Q4H PRN PRN Reason: htn Hydrochlorothiazide (Hydrochlorothiazide 25 Mg Tab) 25 mg PO QDAY [facility] Last Admin: 12/09/20 09:08 Dose: 25 mg Documented by: Azithromycin (Zithromax/Ns) 500 mg in 250 mls @ 250 mls/hr IV Q24H [facility] Last Admin: 12/09/20 03:57 Dose: 250 mls/hr Documented by: Insulin Glargine (Insulin Glargine 100 Units/Ml) 65 units SUB-Q BID [facility] Last Admin: 12/09/20 09:07 Dose: 65 units Documented by: Insulin Human Lispro (Insulin Lispro 100 Unit/Ml) 0 unit SUB-Q ACHS [facility]; Protocol Last Admin: 12/09/20 09:09 Dose: 3 unit Documented by: Metoprolol Tartrate (Metoprolol Tartrate 50 Mg Tab) 50 mg PO BID [facility] Last Admin: 12/09/20 09:08 Dose: 50 mg Documented by: Pantoprazole Sodium (Pantoprazole 40 Mg Tab) 40 mg PO QDAC [facility] Last Admin: 12/09/20 09:08 Dose: 40 mg Documented by: Review of Systems Cardiovascular: other (on bipap) Physical Examination Vital Signs Temp Pulse Resp BP Pulse Ox 97.7 F 83 24 179/89 91 12/08/20 23:15 12/08/20 23:15 12/08/20 23:15 12/08/20 23:15 12/08/20 23:15 General appearance: other (on Bipap therapy) Cardiac: Positive: Reg Rate and Rhythm Results 12/08/20 23:41 12/09/20 09:53 Cardiac Enzymes 12/08/20 12/09/20 Range/Units 23:41 04:25 AST 49 H (5-40) units/L Lactate Dehydrogenase 345 H (91-180) units/L Lipids 12/08/20 Range/Units 23:41 Triglycerides 176 H (2-149) mg/dL Cholesterol 202 H (50-199) mg/dL HDL Cholesterol 47 (40-59) mg/dL Cholesterol/HDL Ratio 4.29 % CBC 12/08/20 Range/Units 23:41 WBC 14.4 H (4.5-11.0) K/mm3 RBC 3.23 L (3.65-5.03) M/mm3 Hgb 9.8 L (11.8-15.2) gm/dl Hct 29.1 L (35.5-45.6) % Plt Count 208 (140-440) K/mm3 Lymph # (Auto) 0.7 L (1.2-5.4) K/mm3 [place] # (Auto) 0.9 H (0.0-0.8) K/mm3 Eos # (Auto) 0.1 (0.0-0.4) K/mm3 Baso # (Auto) 0.1 (0.0-0.1) K/mm3 Comprehensive Metabolic Panel 12/08/20 12/09/20 12/09/20 Range/Units 23:41 04:25 09:53 Sodium 138 138 (137-145) mmol/L Potassium 4.5 4.9 (3.6-5.0) mmol/L Chloride 105.6 105.6 (98-107) mmol/L Carbon Dioxide 20 L 20 L (22-30) mmol/L BUN 36 H 40 H (9-20) mg/dL Creatinine 4.1 H 4.4 H (0.8-1.3) mg/dL Glucose 247 H 225 H 226 H (75-100) mg/dL Calcium 8.0 L 8.4 (8.4-10.2) mg/dL AST 49 H (5-40) units/L ALT 60 H (7-56) units/L Alkaline Phosphatase 93 (35-129) units/L Total Protein 7.5 (6.3-8.2) g/dL Albumin 3.9 (3.9-5) g/dL Assessment and Plan Elevated troponin Shortness of breath after eating fish COVID-19 test result is pending Hypertension, uncontrolled Renal failure Diabetes, uncontrolled
--- NOTE | 2020-12-09 15:00 | Consultation ---
History of Present Illness - Reason for Consult Consult date: 12/09/20 - History of Present Illness 70-year-old man past medical history hypertension, diabetes, CKD brought to hospital complaining shortness of breath. He notes it was sudden onset of the day of admission while eating dinner. He also complains of lower extremity edema as well. Otherwise no issue such as fevers, sweats, chills. Afebrile since admission with a white count of 14.4. Covid testing pending. Procalcitonin normal. GFR 16. No cultures available for review. Currently on azithromycin requiring BiPAP. Imaging personally reviewed: Chest x-ray: Mild patchy multifocal airspace disease Review of systems: Deferred to reduce to the risk of transmission of COVID-19 Past History Past Medical History: diabetes, hypertension, hyperlipidemia, renal failure Medications and Allergies Allergies Allergy/AdvReac Type Severity Reaction Status Date / Time No Known Allergies Allergy Verified 09/01/18 16:18 Home Medications Medication Instructions Recorded Confirmed Last Taken Type Lantus Solostar 65 units SQ BID 10/27/15 09/01/18 03/11/16 History glipiZIDE [Glucotrol] 10 mg PO QDAY 10/27/15 09/01/18 03/11/16 History amLODIPine [Norvasc] 10 mg PO DAILY 03/01/16 09/01/18 03/12/16 05:00 History lisinopriL [Zestril TAB] 40 mg PO DAILY 03/01/16 09/01/18 03/12/16 05:00 History Colchicine 0.6 mg PO PRN PRN 09/01/18 09/01/18 Unknown History Gabapentin [Neurontin] 600 mg PO DAILY 09/01/18 09/01/18 Unknown History Insulin Lispro [HumaLOG VIAL] 0 units SQ TID 09/01/18 09/01/18 Unknown History Metoprolol [Lopressor TAB] 50 mg PO BID 09/01/18 09/01/18 Unknown History Pioglitazone HCl [Actos] 30 mg PO DAILY 09/01/18 09/01/18 Unknown History Pravastatin [Pravachol] 40 mg PO QHS 09/01/18 09/01/18 Unknown History cloNIDine [Catapres] 0.2 mg PO BID 09/01/18 09/01/18 Unknown History hydroCHLOROthiazide [HCTZ] 25 mg PO QDAY 09/01/18 09/01/18 Unknown History Omeprazole 20 mg PO QDAY #20 capsule. 11/05/19 Unknown Rx Ondansetron [Zofran Odt] 4 mg PO Q8HR PRN #12 tab.rapdis 11/05/19 Unknown Rx Active Meds: Active Medications Amlodipine Besylate (Amlodipine 10 Mg Tab) 10 mg PO DAILY [facility] Last Admin: 12/09/20 09:09 Dose: 10 mg Documented by: Aspirin (Aspirin 325 Mg Tab) 325 mg PO QDAY [facility] Last Admin: 12/09/20 09:08 Dose: 325 mg Documented by: Atorvastatin Calcium (Atorvastatin 40 Mg Tab) 40 mg PO QHS [facility] Clonidine HCl (Clonidine 0.2 Mg Tab) 0.2 mg PO BID [facility] Last Admin: 12/09/20 09:12 Dose: 0.2 mg Documented by: Colchicine (Colchicine 0.6 Mg Tab) 0.6 mg PO QDAY PRN PRN Reason: Gout pain Dextrose (Dextrose 50% In Water (25gm) 50 Ml Syringe) 50 ml IV Q30MIN PRN; Protocol PRN Reason: Hypoglycemia Furosemide (Furosemide 40 Mg/4 Ml Inj) 40 mg IV BID@0600,1800 [facility] Last Admin: 12/09/20 05:32 Dose: 40 mg Documented by: Gabapentin (Gabapentin 300 Mg Cap) 600 mg PO DAILY [facility] Last Admin: 12/09/20 09:09 Dose: 600 mg Documented by: Glipizide (Glipizide 10 Mg Tab) 10 mg PO QDDIAB [facility] Last Admin: 12/09/20 09:08 Dose: 10 mg Documented by: Heparin Sodium (Porcine) (Heparin 5,000 Unit/1 Ml Vial) 5,000 unit SUB-Q Q8HR [facility] Last Admin: 12/09/20 05:33 Dose: 5,000 unit Documented by: Hydralazine HCl (Hydralazine 25 Mg Tab) 50 mg PO Q8HR [facility] Hydralazine HCl (Hydralazine 20 Mg/1 Ml Inj) 10 mg IV Q4H PRN PRN Reason: htn Hydrochlorothiazide (Hydrochlorothiazide 25 Mg Tab) 25 mg PO QDAY [facility] Last Admin: 12/09/20 09:08 Dose: 25 mg Documented by: Azithromycin (Zithromax/Ns) 500 mg in 250 mls @ 250 mls/hr IV Q24H [facility] Stop: 12/13/20 03:59 Last Admin: 12/09/20 03:57 Dose: 250 mls/hr Documented by: Insulin Glargine (Insulin Glargine 100 Units/Ml) 65 units SUB-Q BID [facility] Last Admin: 12/09/20 09:07 Dose: 65 units Documented by: Insulin Human Lispro (Insulin Lispro 100 Unit/Ml) 0 unit SUB-Q ACHS [facility]; Protocol Last Admin: 12/09/20 12:24 Dose: 3 unit Documented by: Metoprolol Tartrate (Metoprolol Tartrate 50 Mg Tab) 50 mg PO BID [facility] Last Admin: 12/09/20 09:08 Dose: 50 mg Documented by: Pantoprazole Sodium (Pantoprazole 40 Mg Tab) 40 mg PO QDAC [facility] Last Admin: 12/09/20 09:08 Dose: 40 mg Documented by: Physical Examination - Physical Exam Narrative exam: Physical exam deferred to reduce risk of transmission of COVID-19. Please refer to primary team's note. - Constitutional Vitals: Vital Signs Temp Pulse Resp BP Pulse Ox 98.1 F 60 9 L 127/67 100 12/09/20 12:23 12/09/20 13:20 12/09/20 13:20 12/09/20 13:20 12/09/20 13:20 Temperature -Last 24 Hours Temperature 98.1 F Temperature 98.4 F Temperature 97.9 F Temperature 98.3 F Temperature 97.8 F Temperature 97.7 F Results - Labs CBC & Chem 7: 12/08/20 23:41 12/09/20 09:53 Labs: Abnormal lab results 12/08/20 12/08/20 12/09/20 Range/Units 23:41 23:41 04:25 WBC 14.4 H (4.5-11.0) K/mm3 RBC 3.23 L (3.65-5.03) M/mm3 Hgb 9.8 L (11.8-15.2) gm/dl Hct 29.1 L (35.5-45.6) % Lymph % (Auto) 5.1 L (13.4-35.0) % Lymph # (Auto) 0.7 L (1.2-5.4) K/mm3 [place] # (Auto) 0.9 H (0.0-0.8) K/mm3 Seg Neutrophils % 87.8 H (40.0-70.0) % Seg Neutrophils # 12.6 H (1.8-7.7) K/mm3 D-Dimer 722.42 H (0-234) ng/mlDDU Carbon Dioxide 20 L (22-30) mmol/L BUN 36 H (9-20) mg/dL Creatinine 4.1 H (0.8-1.3) mg/dL Glucose 247 H (75-100) mg/dL POC Glucose (70-105) mg/dL Calcium 8.0 L (8.4-10.2) mg/dL AST 49 H (5-40) units/L ALT 60 H (7-56) units/L Lactate Dehydrogenase (91-180) units/L Troponin T 0.108 H* (0.00-0.029) ng/mL Triglycerides 176 H (2-149) mg/dL Cholesterol 202 H (50-199) mg/dL 12/09/20 12/09/20 12/09/20 Range/Units 04:25 08:05 09:53 WBC (4.5-11.0) K/mm3 RBC (3.65-5.03) M/mm3 Hgb (11.8-15.2) gm/dl Hct (35.5-45.6) % Lymph % (Auto) (13.4-35.0) % Lymph # (Auto) (1.2-5.4) K/mm3 [place] # (Auto) (0.0-0.8) K/mm3 Seg Neutrophils % (40.0-70.0) % Seg Neutrophils # (1.8-7.7) K/mm3 D-Dimer (0-234) ng/mlDDU Carbon Dioxide 20 L (22-30) mmol/L BUN 40 H (9-20) mg/dL Creatinine 4.4 H (0.8-1.3) mg/dL Glucose 225 H 226 H (75-100) mg/dL POC Glucose 205 H (70-105) mg/dL Calcium (8.4-10.2) mg/dL AST (5-40) units/L ALT (7-56) units/L Lactate Dehydrogenase 345 H (91-180) units/L Troponin T (0.00-0.029) ng/mL Triglycerides (2-149) mg/dL Cholesterol (50-199) mg/dL Assessment and Plan Cultures: Covid PCR: Pending. A/P: 70-year-old man past medical history hypertension, diabetes, CKD admitted with acute respiratory failure #Acute hypoxemic respiratory failure: Secondary to fluid overload versus pneumonia. Currently on BiPAP. Pending COVID-19. Normal procalcitonin. #KIMBERLEY on CKD: Renally dose medications. #Covid PUI: Follow-up PCR #Diabetes: tight glycemic control for best outcomes. Recs: -Follow-up Covid PCR -Okay to stop antibiotics given normal procalcitonin. -If Covid positive would start dexamethasone -Follow-up echo read Thank you for the consult, we will continue to follow. MD Yevgeniy [facility] O: [phone] F: [phone]
[2020-12-09] MEDS: hydrALAZINE 25 MG TAB PO SCH ×2 (15:11→22:46)
--- NOTE | 2020-12-09 16:57 | Consultation ---
History of Present Illness - Reason for Consult Consult date: 12/09/20 acute renal failure, chronic renal failure - History of Present Illness History obtained from patient and patient's daughter (Susi Steele) Mr. Luevano is a 70yo with hypertension, type II DM and CKD. He reports dx of CKD appx 2 years ago and has been under the care of Dr. Geoff RENEE) for appx 6 months. Patient reports that there have been discussion at prior visits re: dialysis if patient's blood pressure remains uncontrolled. However, details of patient's level of function is unknown. Daughter reports that patient recently presented to his PCP for medical clearance for dental work. Medical clearance was requested due to uncontrolled hypertension. At PCP office, patient was noted to have a weight gain of 25lbs in less than a month. He was advised to follow up with his PCP. He presented to the ED last night with acute onset of vomiting and difficulty breathing. Mr. Luevano denies chest pain, orthopnea, fevers, chills. He reports 2 week hx of progressive leg swelling. Past History Past Medical History: diabetes, hypertension, hyperlipidemia, renal failure Medications and Allergies Allergies Allergy/AdvReac Type Severity Reaction Status Date / Time No Known Allergies Allergy Verified 09/01/18 16:18 Home Medications Medication Instructions Recorded Confirmed Last Taken Type Lantus Solostar 65 units SQ BID 10/27/15 09/01/18 03/11/16 History glipiZIDE [Glucotrol] 10 mg PO QDAY 10/27/15 09/01/18 03/11/16 History amLODIPine [Norvasc] 10 mg PO DAILY 03/01/16 09/01/18 03/12/16 05:00 History lisinopriL [Zestril TAB] 40 mg PO DAILY 03/01/16 09/01/18 03/12/16 05:00 History Colchicine 0.6 mg PO PRN PRN 09/01/18 09/01/18 Unknown History Gabapentin [Neurontin] 600 mg PO DAILY 09/01/18 09/01/18 Unknown History Insulin Lispro [HumaLOG VIAL] 0 units SQ TID 09/01/18 09/01/18 Unknown History Metoprolol [Lopressor TAB] 50 mg PO BID 09/01/18 09/01/18 Unknown History Pioglitazone HCl [Actos] 30 mg PO DAILY 09/01/18 09/01/18 Unknown History Pravastatin [Pravachol] 40 mg PO QHS 09/01/18 09/01/18 Unknown History cloNIDine [Catapres] 0.2 mg PO BID 09/01/18 09/01/18 Unknown History hydroCHLOROthiazide [HCTZ] 25 mg PO QDAY 09/01/18 09/01/18 Unknown History Omeprazole 20 mg PO QDAY #20 capsule. 11/05/19 Unknown Rx Ondansetron [Zofran Odt] 4 mg PO Q8HR PRN #12 tab.rapdis 11/05/19 Unknown Rx Active Meds: Active Medications Amlodipine Besylate (Amlodipine 10 Mg Tab) 10 mg PO DAILY [facility] Last Admin: 12/09/20 09:09 Dose: 10 mg Documented by: Aspirin (Aspirin 325 Mg Tab) 325 mg PO QDAY [facility] Last Admin: 12/09/20 09:08 Dose: 325 mg Documented by: Atorvastatin Calcium (Atorvastatin 40 Mg Tab) 40 mg PO QHS [facility] Clonidine HCl (Clonidine 0.2 Mg Tab) 0.2 mg PO BID [facility] Last Admin: 12/09/20 09:12 Dose: 0.2 mg Documented by: Colchicine (Colchicine 0.6 Mg Tab) 0.6 mg PO QDAY PRN PRN Reason: Gout pain Dextrose (Dextrose 50% In Water (25gm) 50 Ml Syringe) 50 ml IV Q30MIN PRN; Protocol PRN Reason: Hypoglycemia Furosemide (Furosemide 40 Mg/4 Ml Inj) 40 mg IV BID@0600,1800 [facility] Last Admin: 12/09/20 05:32 Dose: 40 mg Documented by: Gabapentin (Gabapentin 300 Mg Cap) 600 mg PO DAILY [facility] Last Admin: 12/09/20 09:09 Dose: 600 mg Documented by: Glipizide (Glipizide 10 Mg Tab) 10 mg PO QDDIAB [facility] Last Admin: 12/09/20 09:08 Dose: 10 mg Documented by: Heparin Sodium (Porcine) (Heparin 5,000 Unit/1 Ml Vial) 5,000 unit SUB-Q Q8HR [facility] Last Admin: 12/09/20 15:11 Dose: 5,000 unit Documented by: Hydralazine HCl (Hydralazine 25 Mg Tab) 50 mg PO Q8HR [facility] Last Admin: 12/09/20 15:11 Dose: 50 mg Documented by: Hydralazine HCl (Hydralazine 20 Mg/1 Ml Inj) 10 mg IV Q4H PRN PRN Reason: htn Hydrochlorothiazide (Hydrochlorothiazide 25 Mg Tab) 25 mg PO QDAY [facility] Last Admin: 12/09/20 09:08 Dose: 25 mg Documented by: Insulin Glargine (Insulin Glargine 100 Units/Ml) 65 units SUB-Q BID [facility] Last Admin: 12/09/20 09:07 Dose: 65 units Documented by: Insulin Human Lispro (Insulin Lispro 100 Unit/Ml) 0 unit SUB-Q ACHS [facility]; Protocol Last Admin: 12/09/20 12:24 Dose: 3 unit Documented by: Metoprolol Tartrate (Metoprolol Tartrate 50 Mg Tab) 50 mg PO BID [facility] Last Admin: 12/09/20 09:08 Dose: 50 mg Documented by: Pantoprazole Sodium (Pantoprazole 40 Mg Tab) 40 mg PO QDAC [facility] Last Admin: 12/09/20 09:08 Dose: 40 mg Documented by: Review of Systems All systems: negative Exam - Vital Signs Vital signs: Vital Signs Temp Pulse Resp BP Pulse Ox 97.7 F 83 24 179/89 91 12/08/20 23:15 12/08/20 23:15 12/08/20 23:15 12/08/20 23:15 12/08/20 23:15 - General Appearance General appearance: well-developed, well-nourished EENT: ATNC Respiratory: Decreased Breath Sounds Heart: regular, S1S2 Gastrointestinal: Present: normal. Absent: tenderness, distended Integumentary: no rash, warm and dry Musculoskeletal: Present: other (2+ edema) Psychiatric: cooperative Results - Lab Results 12/08/20 23:41 12/09/20 09:53 Most recent lab results Calcium 8.4 mg/dL (8.4-10.2) 12/09/20 09:53 Assessment and Plan Impression: * Acute kidney injury on chronic kidney disease --Baseline renal function unknown; followed by Dr. Tellez * Acute hypoxic respiratory failure --COVID 19 negative * Hypertension * Type II DM * Metabolic acidosis Plan: * Renal prognosis is guarded. No acute indication for renal replacement therapy at this time. * Continue IV diuresis * Strict I/O - discussed with RN, condom catheter ordered * Will obtain UA and UPCR * Obtain ANCA, C3, C4, SIFE * Obtain renal ultrasound * Cardiology consultation reviewed * TTE pending * Dose medications for renal function * AM labs
[2020-12-10] MEDS: FUROSEMIDE 40 MG/4 ML INJ IV SCH ×2 (05:40→17:44)
[2020-12-10] MEDS: HEPARIN 5,000 UNIT/1 ML VIAL SUB-Q SCH ×3 (05:40→22:12)
[2020-12-10 05:48] LABS: Calcium 8.4 mg/dL (8.4-10.2)
[2020-12-10] MEDS: hydrALAZINE 25 MG TAB PO SCH ×3 (06:09→22:04)
--- NOTE | 2020-12-10 09:18 | Progress Note ---
Assessment and Plan Assessment and plan: --Acute hypoxic respiratory failure requiring BiPAP Current Visit: Yes Status: Acute due to fluid overload versus pneumonia IV diuretics, oxygen titrate O2 sats more than 90% BiPAP as needed, DC empiric antibiotics, procalcitonin levels below ID following, consult pulmonary if needed --Type II diabetes melitis Current Visit: No Status: Chronic Plan to address problem: Patient is on very high doses of insulin and oral hypoglycemics Hold oral hypoglycemics, reduce Lantus dose --Hypoglycemia; will hold oral hypoglycemics glipizide Closely monitor blood sugars, reduce the dose of Lantus --Possible CHF (congestive heart failure) Current Visit: Yes Status: Acute IV diuretics, input output monitoring, daily weights Low-sodium diet, water restriction Cardiology consult, follow echocardiogram LV function ejection fraction --Nonspecific elevated troponin Current Visit: Yes Status: Acute Serial cardiac enzymes, treat the underlying cause congestive heart failure; fluid overload Cardiology --Acute on chronic kidney disease stage III Current Visit: Yes Status: Acute Vasomotor nephropathy Monitoring function avoid nephrotoxins, gentle hydration Nephrology consulted --Morbid obesity; BMI 40.8 Current Visit: Yes Status: Acute diet modification, exercise as tolerated and weight reduction When medically stable -- HTN (hypertension) Current Visit: No Status: Chronic Plan to address problem: Hydralazine 10 mg IV every 6 hours as needed. We will continue the home hypertension medication. We monitor the blood pressure closely --Full CODE STATUS; --DVT prophylaxis Current Visit: Yes Status: Acute Plan to address problem: Heparin 5000 units subcu every 8 hours for DVT prophylaxis. Closely monitor the patient and adjust the management as needed Plan of care reviewed with the patient and his nurse Critical care time 45 minutes We will closely monitor the patient and adjust management as needed Plan of care reviewed with the patient and his nurse Will transition to telemetry in 1 to 2 hours if stable DC planning per case management 12/10; hypoglycemia episode, decrease Lantus dose, DC glipizide Closely monitor blood pressures and blood sugars Transfer out of MICU to telemetry History Interval history: I have seen and examined the patient at the bedside in [facility] Patient's chart and medications reviewed Patient feels slightly better, on nasal cannula oxygen saturating well However had an hypoglycemia episode with blood sugars in 50s to 60s Patient is on very high dose of Lantus 65 units times twice a day Denies any chest pain nausea or vomiting Vital signs noted Hospitalist Physical - Constitutional Vitals: Temp Pulse Resp BP Pulse Ox 98.8 F 60 10 L 120/64 100 12/10/20 04:02 12/10/20 08:00 12/10/20 08:00 12/10/20 08:00 12/10/20 08:41 General appearance: Present: no acute distress, well-nourished - EENT Eyes: Present: PERRL, EOM intact - Neck Neck: Present: supple, normal ROM - Respiratory Respiratory effort: normal Respiratory: bilateral: diminished, negative: rales, rhonchi, wheezing - Cardiovascular Rhythm: regular Heart Sounds: Present: S1 & S2 - Extremities Extremities: no ischemia, No edema - Abdominal General gastrointestinal: soft, non-tender, non-distended, normal bowel sounds - Integumentary Integumentary: Present: clear, warm - Psychiatric Psychiatric: appropriate mood/affect, cooperative - Neurologic Neurologic: moves all extremities HEART Score - HEART Score Age: > 65 Risk factors: > 3 risk factors or hx of atherosclerotic disease Troponin: Troponin T 0.108 ng/mL (0.00-0.029) H* 12/08/20 23:41 Troponin: 1-3x normal limit Results - Labs CBC & Chem 7: 12/08/20 23:41 12/10/20 04:38 Labs: Laboratory Last Values WBC 14.4 K/mm3 (4.5-11.0) H 12/08/20 23:41 RBC 3.23 M/mm3 (3.65-5.03) L 12/08/20 23:41 Hgb 9.8 gm/dl (11.8-15.2) L 12/08/20 23:41 Hct 29.1 % (35.5-45.6) L 12/08/20 23:41 MCV 90 fl (84-94) 12/08/20 23:41 MCH 30 pg (28-32) 12/08/20 23:41 MCHC 34 % (32-34) 12/08/20 23:41 RDW 14.8 % (13.2-15.2) 12/08/20 23:41 Plt Count 208 K/mm3 (140-440) 12/08/20 23:41 Lymph % (Auto) 5.1 % (13.4-35.0) L 12/08/20 23:41 [place] % (Auto) 5.9 % (0.0-7.3) 12/08/20 23:41 Eos % (Auto) 0.8 % (0.0-4.3) 12/08/20 23:41 Baso % (Auto) 0.4 % (0.0-1.8) 12/08/20 23:41 Lymph # (Auto) 0.7 K/mm3 (1.2-5.4) L 12/08/20 23:41 [place] # (Auto) 0.9 K/mm3 (0.0-0.8) H 12/08/20 23:41 Eos # (Auto) 0.1 K/mm3 (0.0-0.4) 12/08/20 23:41 Baso # (Auto) 0.1 K/mm3 (0.0-0.1) 12/08/20 23:41 Seg Neutrophils % 87.8 % (40.0-70.0) H 12/08/20 23:41 Seg Neutrophils # 12.6 K/mm3 (1.8-7.7) H 12/08/20 23:41 D-Dimer 722.42 ng/mlDDU (0-234) H 12/09/20 04:25 Sodium 138 mmol/L (137-145) 12/10/20 04:38 Potassium 4.3 mmol/L (3.6-5.0) 12/10/20 04:38 Chloride 105.0 mmol/L (98-107) 12/10/20 04:38 Carbon Dioxide 23 mmol/L (22-30) 12/10/20 04:38 Anion Gap 14 mmol/L 12/10/20 04:38 BUN 46 mg/dL (9-20) H 12/10/20 04:38 Creatinine 4.6 mg/dL (0.8-1.3) H 12/10/20 04:38 Estimated GFR 15 ml/min 12/10/20 04:38 BUN/Creatinine Ratio 10 % 12/10/20 04:38 Glucose 56 mg/dL (75-100) L 12/10/20 04:38 POC Glucose 182 mg/dL (70-105) H 12/09/20 22:35 Calcium 8.4 mg/dL (8.4-10.2) 12/10/20 04:38 Ferritin 195.4 ng/mL (30.0-300.0) 12/09/20 04:25 Total Bilirubin 0.20 mg/dL (0.1-1.2) 12/08/20 23:41 AST 49 units/L (5-40) H 12/08/20 23:41 ALT 60 units/L (7-56) H 12/08/20 23:41 Alkaline Phosphatase 93 units/L (35-129) 12/08/20 23:41 Lactate Dehydrogenase 345 units/L (91-180) H 12/09/20 04:25 Troponin T 0.108 ng/mL (0.00-0.029) H* 12/08/20 23:41 C-Reactive Protein 1.20 mg/dL (0.00-1.30) 12/09/20 04:25 Total Protein 7.5 g/dL (6.3-8.2) 12/08/20 23:41 Albumin 3.9 g/dL (3.9-5) 12/08/20 23:41 Albumin/Globulin Ratio 1.1 % 12/08/20 23:41 Triglycerides 176 mg/dL (2-149) H 12/08/20 23:41 Cholesterol 202 mg/dL (50-199) H 12/08/20 23:41 LDL Cholesterol Direct 128 mg/dL (50-130) 12/08/20 23:41 HDL Cholesterol 47 mg/dL (40-59) 12/08/20 23:41 Cholesterol/HDL Ratio 4.29 % 12/08/20 23:41 Procalcitonin 0.14 ng/mL (<0.15) 12/09/20 04:25 Coronavirus (PCR) Negative (Negative) 12/09/20 09:53 Arce/IV: Voiding Method Condom Catheter Active Medications - Current Medications Current Medications: Generic Name Dose Route Start Last Admin Trade Name Freq PRN Reason Stop Dose Admin Amlodipine Besylate 10 mg 12/09/20 10:00 12/09/20 09:09 Amlodipine 10 Mg Tab PO 10 mg DAILY ANI Administration Aspirin 325 mg 12/09/20 10:00 12/09/20 09:08 Aspirin 325 Mg Tab PO 325 mg QDAY ANI Administration Atorvastatin Calcium 40 mg 12/09/20 22:00 12/09/20 22:47 Atorvastatin 40 Mg Tab PO 40 mg QHS ANI Administration Clonidine HCl 0.2 mg 12/09/20 10:00 12/09/20 22:46 Clonidine 0.2 Mg Tab PO 0.2 mg BID ANI Administration Colchicine 0.6 mg 12/09/20 02:25 Colchicine 0.6 Mg Tab PO QDAY PRN Gout pain Dextrose 50 ml 12/09/20 02:11 Dextrose 50% In Water (25gm) 50 Ml Syringe IV Q30MIN PRN Hypoglycemia Protocol Furosemide 40 mg 12/09/20 06:00 12/10/20 05:40 Furosemide 40 Mg/4 Ml Inj IV 40 mg BID@0600,1800 ANI Administration Gabapentin 600 mg 12/09/20 10:00 12/09/20 09:09 Gabapentin 300 Mg Cap PO 600 mg DAILY ANI Administration Glipizide 10 mg 12/09/20 08:00 12/09/20 09:08 Glipizide 10 Mg Tab PO 10 mg QDDIAB ANI Administration Heparin Sodium (Porcine) 5,000 unit 12/09/20 06:00 12/10/20 05:40 Heparin 5,000 Unit/1 Ml Vial SUB-Q 5,000 unit Q8HR ANI Administration Hydralazine HCl 50 mg 12/09/20 14:00 12/10/20 06:09 Hydralazine 25 Mg Tab PO 50 mg Q8HR ANI Administration Hydralazine HCl 10 mg 12/09/20 09:30 Hydralazine 20 Mg/1 Ml Inj IV Q4H PRN htn Insulin Glargine 65 units 12/09/20 10:00 12/09/20 22:47 Insulin Glargine 100 Units/Ml SUB-Q 65 units BID ANI Administration Insulin Human Lispro 0 unit 12/09/20 07:30 12/09/20 22:47 Insulin Lispro 100 Unit/Ml SUB-Q 3 unit ACHS ANI Administration Protocol Metoprolol Tartrate 50 mg 12/09/20 10:00 12/09/20 22:46 Metoprolol Tartrate 50 Mg Tab PO 50 mg BID ANI Administration Pantoprazole Sodium 40 mg 12/09/20 07:30 12/09/20 09:08 Pantoprazole 40 Mg Tab PO 40 mg QDAC ANI Administration Nutrition/Malnutrition Assess - Dietary Evaluation Nutrition/Malnutrition Findings: Nutrition Notes Start: 12/09/20 13:38 Freq: Status: Active Protocol: Document 12/09/20 13:38 CW (Rec: 12/09/20 13:42 CW [email or web address]) Nutrition Notes Need for Assessment generated from: MD Order,Education Initial or Follow up Brief Note Current Diagnosis CKD(stage I-IV),Heart Failure, Respiratory Failure, Hyperlipidemia Other Pertinent Diagnosis Covid PUI, pneu, SOB, CA Current Diet Cardiac Diet Labs/Tests BG 226 BUN 36 Cr 4.1 TF 176 Chol 202 BP 179/89 Pertinent Medications Humalog Glipizide Lantus Lasix Decadron Height 5 ft 8 in Weight 121.8 kg [place] Body Weight (kg) 70.00 BMI 40.8 Weight Status Morbidly Obese Subjective/Other Information MD consult for diet education. Pt has had elevate BP and BG levels on admission indicating need for heart heathy consistent carbohydrate diet. Pt did n9ot answer phone x2 for diet education Nutrition Intervention Change Diet Order: Change diet to Renal Consistent Carbohydrate Diet Goal #1 Understand importance of nutrition therapy Anticipated Discharge Needs: Renal consistent carbohydrate diet Follow-Up By: 12/12/20 Additional Comments F/U for diet education
[2020-12-10] MEDS: INSULIN LISPRO 100 UNIT/ML SUB-Q SCH ×4 (09:24→22:05)
[2020-12-10] MEDS: ASPIRIN 325 MG TAB PO SCH (09:28)
[2020-12-10] MEDS: GABAPENTIN 300 MG CAP PO SCH (09:28)
[2020-12-10] MEDS: PANTOPRAZOLE 40 MG TAB PO SCH (09:29)
[2020-12-10] MEDS: METOPROLOL TARTRATE 50 MG TAB PO SCH ×4 (09:29→23:07)
[2020-12-10] MEDS: amLODIPine 10 MG TAB PO SCH (09:29)
[2020-12-10] MEDS: cloNIDine 0.2 MG TAB PO SCH ×2 (09:31→22:03)
[2020-12-10] MEDS: INSULIN GLARGINE 100 UNITS/ML SUB-Q SCH (09:32)
[2020-12-10] MEDS: glipiZIDE 10 MG TAB PO SCH (10:03)
--- NOTE | 2020-12-10 11:01 | Progress Note ---
Assessment and Plan Acute respiratory failure Volume overload: Likely combination of systolic heart failure and renal failure Uncontrolled Htn DM Nonspecific troponin elevation in setting of renal failure Acute on CKD Recommend: Check BNP Continue diuresis with IV furosemide while monitoring renal function Eventual myocardial ischemia evaluation Subjective Date of service: 12/10/20 Interval history: No acute events. Pt reports dyspnea is improved. Objective Vital Signs Temp Pulse Resp BP Pulse Ox 12/10/20 09:31 64 148/78 12/10/20 09:29 64 148/78 12/10/20 09:00 62 9 L 148/78 98 12/10/20 08:41 100 12/10/20 08:00 60 10 L 120/64 98 12/10/20 07:00 62 18 128/68 99 12/10/20 06:09 65 158/82 12/10/20 06:00 68 23 158/82 100 12/10/20 05:15 95 12/10/20 05:00 72 12 143/72 98 12/10/20 04:02 98.8 F 12/10/20 04:00 70 11 L 136/63 95 12/10/20 03:00 66 9 L 137/67 98 12/10/20 02:00 65 9 L 141/75 99 12/10/20 01:00 66 8 L 136/72 98 12/10/20 00:06 66 7 L 120/64 98 12/10/20 00:00 66 8 L 120/64 98 12/09/20 23:56 98.2 F 12/09/20 23:00 69 12 152/62 99 12/09/20 22:46 70 145/71 12/09/20 22:00 70 17 110/57 100 12/09/20 21:00 64 9 L 134/79 98 12/09/20 20:00 61 8 L 133/79 98 12/09/20 19:46 97.7 F 12/09/20 19:35 100 12/09/20 19:00 63 12 141/76 100 12/09/20 18:00 68 13 148/86 98 12/09/20 17:30 70 14 151/82 97 12/09/20 17:00 69 14 151/82 100 12/09/20 16:42 98 F 12/09/20 16:30 71 16 141/90 100 12/09/20 16:00 69 17 141/90 100 12/09/20 15:30 66 15 141/90 12/09/20 15:11 64 141/80 12/09/20 15:00 60 9 L 141/80 12/09/20 14:55 100 12/09/20 14:30 59 L 9 L 153/90 12/09/20 14:00 60 10 L 164/82 12/09/20 13:30 59 L 8 L 132/67 12/09/20 13:20 60 9 L 127/67 12/09/20 13:10 61 8 L 133/66 12/09/20 13:00 60 9 L 133/66 12/09/20 12:50 61 9 L 126/64 12/09/20 12:40 61 9 L 134/80 12/09/20 12:30 63 10 L 134/80 12/09/20 12:23 98.1 F 12/09/20 12:20 139/72 100 12/09/20 12:10 141/73 12/09/20 12:00 141/73 12/09/20 11:50 136/68 12/09/20 11:40 124/74 12/09/20 11:30 124/74 12/09/20 11:20 110/83 12/09/20 11:10 125/74 100 12/09/20 11:00 125/74 100 - Physical Examination Cardiac: Positive: Reg Rate and Rhythm Lungs: Positive: Decreased Breath Sounds, Rales Abdomen: Positive: Soft Extremities: Present: +1 Edema - Labs and Meds Comprehensive Metabolic Panel 12/10/20 Range/Units 04:38 Sodium 138 (137-145) mmol/L Potassium 4.3 (3.6-5.0) mmol/L Chloride 105.0 (98-107) mmol/L Carbon Dioxide 23 (22-30) mmol/L BUN 46 H (9-20) mg/dL Creatinine 4.6 H (0.8-1.3) mg/dL Glucose 56 L (75-100) mg/dL Calcium 8.4 (8.4-10.2) mg/dL
--- NOTE | 2020-12-10 12:27 | Ultrasound Report ---
ULTRASOUND RENAL INDICATION / CLINICAL INFORMATION: acute kidney failure. COMPARISON: None available. FINDINGS: RIGHT KIDNEY: Length = 11.1 cm. - Echogenicity: Normal. - Cortical Thickness: Normal. - Hydronephrosis: None. - Cyst / Mass: None. - Stones: None seen. LEFT KIDNEY: Length = 11.2 cm. - Echogenicity: Normal. - Cortical Thickness: Normal. - Hydronephrosis: None. - Cyst / Mass: None. - Stones: None seen. URINARY BLADDER: No significant abnormality. FREE FLUID: None. ADDITIONAL FINDINGS: None. IMPRESSION: 1. No significant abnormality. Signer Name: Aniket Wiley MD Signed: 12/10/2020 12:23 PM Workstation Name: [id number]
--- NOTE | 2020-12-10 18:06 | Progress Note ---
Assessment and Plan Impression: * Acute kidney injury on chronic kidney disease --Baseline renal function unknown; followed by Dr. Tellez * Acute hypoxic respiratory failure --COVID 19 negative * Hypertension * Type II DM * Metabolic acidosis * Urinary retention Plan: * Renal prognosis is guarded. No acute indication for renal replacement therapy at this time. * Continue IV diuresis * Will order napier catheter in light of urinary retention. Start Flomax daily * Await UA and UPCR - ordered but pending collection * Serologies are pending * Renal u/s reviewed - nml size/echogenicity * Cardiology recommendations reviewed; TTE pending * Dose medications for renal function * AM labs Subjective Date of service: 12/10/20 Interval history: Patient has no complaints today. RN reports patient w/ urinary retention - return of appx 1000ml w/ straight cath. Objective - Vital Signs Vital signs: Vital Signs - 12hr 12/10/20 12/10/20 12/10/20 06:09 07:00 08:00 Pulse Rate 65 62 60 Respiratory 18 10 L Rate Blood Pressure 158/82 128/68 120/64 O2 Sat by Pulse 99 98 Oximetry 12/10/20 12/10/20 12/10/20 08:41 09:00 09:29 Pulse Rate 62 64 Respiratory 9 L Rate Blood Pressure 148/78 148/78 O2 Sat by Pulse 100 98 Oximetry 12/10/20 12/10/20 12/10/20 09:31 10:00 11:00 Pulse Rate 64 67 62 Respiratory 17 12 Rate Blood Pressure 148/78 148/78 120/63 O2 Sat by Pulse 100 100 Oximetry 12/10/20 12/10/20 12/10/20 12:00 13:00 14:00 Pulse Rate 66 56 L 55 L Respiratory 16 11 L 10 L Rate Blood Pressure 120/63 149/84 114/66 O2 Sat by Pulse 99 99 99 Oximetry 12/10/20 12/10/20 12/10/20 15:00 15:03 15:22 Pulse Rate 53 L 92 H 92 H Respiratory 10 L 31 H Rate Blood Pressure 121/69 O2 Sat by Pulse 99 94 Oximetry 12/10/20 12/10/20 12/10/20 15:40 16:00 17:01 Pulse Rate 61 53 L 59 L Respiratory 10 L 13 Rate Blood Pressure 117/70 119/61 O2 Sat by Pulse 98 92 Oximetry - General Appearance General appearance: well-developed, well-nourished EENT: ATNC Respiratory: Present: Decreased Breath Sounds Cardiology: regular, S1S2 Gastrointestinal: normal, no tenderness, no distended Integumentary: no rash, warm and dry Musculoskeletal: other (1+ edema) - Lab 12/08/20 23:41 12/10/20 04:38 Most recent lab results Calcium 8.4 mg/dL (8.4-10.2) 12/10/20 04:38 Medications & Allergies - Medications Allergies/Adverse Reactions: Allergies No Known Allergies Allergy (Verified 09/01/18 16:18) Home Medications: Home Medications Medication Instructions Recorded Confirmed Last Taken Type Lantus Solostar 65 units SQ BID 10/27/15 12/10/20 12/07/20 09:00 History glipiZIDE [Glucotrol] 10 mg PO QDAY 10/27/15 12/10/20 12/07/20 09:00 History amLODIPine [Norvasc] 10 mg PO DAILY 03/01/16 12/10/20 12/07/20 09:00 History 10 mg lisinopriL [Zestril TAB] 40 mg PO DAILY 03/01/16 12/10/20 12/07/20 09:00 History Colchicine 0.6 mg PO PRN PRN 09/01/18 12/10/20 12/07/20 09:00 History Gabapentin [Neurontin] 600 mg PO DAILY 09/01/18 12/10/20 12/07/20 09:00 History Insulin Lispro [HumaLOG VIAL] 0 units SQ TID 09/01/18 12/10/20 12/07/20 21:00 History Metoprolol [Lopressor TAB] 50 mg PO BID 09/01/18 12/10/20 12/07/20 09:00 History Pioglitazone HCl [Actos] 30 mg PO DAILY 09/01/18 12/10/20 12/07/20 09:00 History Pravastatin [Pravachol] 40 mg PO QHS 09/01/18 12/10/20 12/07/20 21:00 History cloNIDine [Catapres] 0.2 mg PO BID 09/01/18 12/10/20 12/07/20 09:00 History hydroCHLOROthiazide [HCTZ] 25 mg PO QDAY 09/01/18 12/10/20 12/07/20 09:00 History Omeprazole 20 mg PO QDAY #20 capsule. 11/05/19 12/10/20 12/07/20 08:00 Rx Ondansetron [Zofran Odt] 4 mg PO Q8HR PRN #12 tab.rapdis 11/05/19 12/10/20 11/16/20 12:00 Rx Active Medications: Generic Name Dose Route Start Last Admin Trade Name Freq PRN Reason Stop Dose Admin Amlodipine Besylate 10 mg 12/09/20 10:00 12/10/20 09:29 Amlodipine 10 Mg Tab PO 10 mg DAILY ANI Administration Aspirin 325 mg 12/09/20 10:00 12/10/20 09:28 Aspirin 325 Mg Tab PO 325 mg QDAY ANI Administration Atorvastatin Calcium 40 mg 12/09/20 22:00 12/09/20 22:47 Atorvastatin 40 Mg Tab PO 40 mg QHS ANI Administration Clonidine HCl 0.2 mg 12/09/20 10:00 12/10/20 09:31 Clonidine 0.2 Mg Tab PO 0.2 mg BID ANI Administration Colchicine 0.6 mg 12/09/20 02:25 Colchicine 0.6 Mg Tab PO QDAY PRN Gout pain Dextrose 50 ml 12/09/20 02:11 Dextrose 50% In Water (25gm) 50 Ml Syringe IV Q30MIN PRN Hypoglycemia Protocol Furosemide 40 mg 12/09/20 06:00 12/10/20 17:44 Furosemide 40 Mg/4 Ml Inj IV 40 mg BID@0600,1800 ANI Administration Gabapentin 600 mg 12/09/20 10:00 12/10/20 09:28 Gabapentin 300 Mg Cap PO 600 mg DAILY ANI Administration Heparin Sodium (Porcine) 5,000 unit 12/09/20 06:00 12/10/20 15:22 Heparin 5,000 Unit/1 Ml Vial SUB-Q 5,000 unit Q8HR ANI Administration Hydralazine HCl 50 mg 12/09/20 14:00 12/10/20 15:22 Hydralazine 25 Mg Tab PO 50 mg Q8HR ANI Administration Hydralazine HCl 10 mg 12/09/20 09:30 Hydralazine 20 Mg/1 Ml Inj IV Q4H PRN htn Insulin Human Lispro 0 unit 12/09/20 07:30 12/10/20 17:08 Insulin Lispro 100 Unit/Ml SUB-Q Not Given ACHS ANI Protocol Metoprolol Tartrate 50 mg 12/09/20 10:00 12/10/20 09:29 Metoprolol Tartrate 50 Mg Tab PO 50 mg BID ANI Administration Pantoprazole Sodium 40 mg 12/09/20 07:30 12/10/20 09:29 Pantoprazole 40 Mg Tab PO 40 mg QDAC ANI Administration
[2020-12-11 06:20] LABS: Albumin 3.2 g/dL (3.9-5); Calcium 8.2 mg/dL (8.4-10.2)
[2020-12-11] MEDS: PANTOPRAZOLE 40 MG TAB PO SCH (06:45)
[2020-12-11] MEDS: TAMSULOSIN 0.4 MG CAP PO SCH ×2 (06:45→22:53)
[2020-12-11] MEDS: HEPARIN 5,000 UNIT/1 ML VIAL SUB-Q SCH ×3 (06:45→22:52)
[2020-12-11] MEDS: hydrALAZINE 25 MG TAB PO SCH ×3 (06:45→22:53)
[2020-12-11] MEDS: FUROSEMIDE 40 MG/4 ML INJ IV SCH ×2 (06:46→17:28)
[2020-12-11] MEDS: INSULIN LISPRO 100 UNIT/ML SUB-Q SCH ×4 (08:32→22:00)
--- NOTE | 2020-12-11 09:07 | Progress Note ---
Assessment and Plan Assessment and plan: --Hypoglycemia; Current Visit: Yes Status: Acute D50 IV as needed If no improvement will start IV D5W will hold oral hypoglycemics glipizide Patient was on very high dose of Lantus at home Discontinued check, Accu-Cheks, sliding scale coverage Long-acting insulin when blood sugars are high --Type II diabetes melitis Current Visit: No Status: Chronic Plan to address problem: Patient is on very high doses of insulin and oral hypoglycemics Hold oral hypoglycemics, hold Lantus Continue Accu-Cheks and sliding scale coverage A1c 8.1 --Acute hypoxic respiratory failure requiring BiPAP Current Visit: Yes Status: Acute due to fluid overload versus pneumonia IV diuretics, oxygen titrate O2 sats more than 90% BiPAP as needed, DC empiric antibiotics, procalcitonin levels below ID following, consult pulmonary if needed --Possible CHF (congestive heart failure) Current Visit: Yes Status: Acute IV diuretics, input output monitoring, daily weights Low-sodium diet, water restriction Cardiology consult, follow echocardiogram LV function ejection fraction --Nonspecific elevated troponin Current Visit: Yes Status: Acute Serial cardiac enzymes, treat the underlying cause congestive heart failure; fluid overload Cardiology --Acute on chronic kidney disease stage III Current Visit: Yes Status: Acute Vasomotor nephropathy Monitoring function avoid nephrotoxins, gentle hydration Nephrology consulted --Morbid obesity; BMI 40.8 Current Visit: Yes Status: Acute diet modification, exercise as tolerated and weight reduction When medically stable -- HTN (hypertension) Current Visit: No Status: Chronic Plan to address problem: Hydralazine 10 mg IV every 6 hours as needed. We will continue the home hypertension medication. We monitor the blood pressure closely --Full CODE STATUS; --DVT prophylaxis Current Visit: Yes Status: Acute Plan to address problem: Heparin 5000 units subcu every 8 hours for DVT prophylaxis. Closely monitor the patient and adjust the management as needed Plan of care reviewed with the patient and his nurse Critical care time 45 minutes We will closely monitor the patient and adjust management as needed Plan of care reviewed with the patient and his nurse Will transition to telemetry in 1 to 2 hours if stable DC planning per case management 12/10; hypoglycemia episode, decrease Lantus dose, DC glipizide Closely monitor blood pressures and blood sugars Transfer out of MICU to telemetry 12/11; patient is hypoglycemic, long-acting insulin, oral hypoglycemics held D50, if no improvement D5W IV fluids Diabetic education, nutrition education History Interval history: I have seen and examined the patient at the bedside today Patient's chart and medications reviewed Patient feels slightly better, blood sugar still in the lower range Receiving D50 as needed No new complaints Vital signs reviewed Hospitalist Physical - Constitutional Vitals: Temp Pulse Resp BP Pulse Ox 98.7 F 58 L 16 134/71 98 12/11/20 08:11 12/11/20 08:33 12/11/20 08:11 12/11/20 08:11 12/11/20 08:11 General appearance: Present: no acute distress, well-nourished, obese (Morbidly obese) - EENT Eyes: Present: PERRL, EOM intact - Neck Neck: Present: supple, normal ROM - Respiratory Respiratory effort: normal Respiratory: bilateral: diminished, rhonchi, negative: rales, wheezing - Cardiovascular Rhythm: regular Heart Sounds: Present: S1 & S2 - Extremities Extremities: no ischemia, No edema - Abdominal General gastrointestinal: soft, non-tender, non-distended, normal bowel sounds - Integumentary Integumentary: Present: clear, warm - Psychiatric Psychiatric: appropriate mood/affect, cooperative - Neurologic Neurologic: moves all extremities HEART Score - HEART Score Age: > 65 Risk factors: > 3 risk factors or hx of atherosclerotic disease Troponin: Troponin T 0.108 ng/mL (0.00-0.029) H* 12/08/20 23:41 Troponin: 1-3x normal limit Results - Labs CBC & Chem 7: 12/08/20 23:41 12/11/20 05:10 Labs: Laboratory Last Values WBC 14.4 K/mm3 (4.5-11.0) H 12/08/20 23:41 RBC 3.23 M/mm3 (3.65-5.03) L 12/08/20 23:41 Hgb 9.8 gm/dl (11.8-15.2) L 12/08/20 23:41 Hct 29.1 % (35.5-45.6) L 12/08/20 23:41 MCV 90 fl (84-94) 12/08/20 23:41 MCH 30 pg (28-32) 12/08/20 23:41 MCHC 34 % (32-34) 12/08/20 23:41 RDW 14.8 % (13.2-15.2) 12/08/20 23:41 Plt Count 208 K/mm3 (140-440) 12/08/20 23:41 Lymph % (Auto) 5.1 % (13.4-35.0) L 12/08/20 23:41 [place] % (Auto) 5.9 % (0.0-7.3) 12/08/20 23:41 Eos % (Auto) 0.8 % (0.0-4.3) 12/08/20 23:41 Baso % (Auto) 0.4 % (0.0-1.8) 12/08/20 23:41 Lymph # (Auto) 0.7 K/mm3 (1.2-5.4) L 12/08/20 23:41 [place] # (Auto) 0.9 K/mm3 (0.0-0.8) H 12/08/20 23:41 Eos # (Auto) 0.1 K/mm3 (0.0-0.4) 12/08/20 23:41 Baso # (Auto) 0.1 K/mm3 (0.0-0.1) 12/08/20 23:41 Seg Neutrophils % 87.8 % (40.0-70.0) H 12/08/20 23:41 Seg Neutrophils # 12.6 K/mm3 (1.8-7.7) H 12/08/20 23:41 D-Dimer 722.42 ng/mlDDU (0-234) H 12/09/20 04:25 Sodium 139 mmol/L (137-145) 12/11/20 05:10 Potassium 4.5 mmol/L (3.6-5.0) 12/11/20 05:10 Chloride 105.7 mmol/L (98-107) 12/11/20 05:10 Carbon Dioxide 23 mmol/L (22-30) 12/11/20 05:10 Anion Gap 15 mmol/L 12/11/20 05:10 BUN 48 mg/dL (9-20) H 12/11/20 05:10 Creatinine 4.5 mg/dL (0.8-1.3) H 12/11/20 05:10 Estimated GFR 16 ml/min 12/11/20 05:10 BUN/Creatinine Ratio 11 % 12/11/20 05:10 Glucose 49 mg/dL (75-100) L 12/11/20 05:10 POC Glucose 77 mg/dL (70-105) 12/10/20 17:54 Hemoglobin A1c 8.1 % (4-6) H 12/10/20 Unknown Calcium 8.2 mg/dL (8.4-10.2) L 12/11/20 05:10 Magnesium 2.30 mg/dL (1.7-2.3) 12/11/20 05:10 Ferritin 195.4 ng/mL (30.0-300.0) 12/09/20 04:25 Total Bilirubin 0.20 mg/dL (0.1-1.2) 12/11/20 05:10 AST 13 units/L (5-40) 12/11/20 05:10 ALT 29 units/L (7-56) 12/11/20 05:10 Alkaline Phosphatase 65 units/L (35-129) 12/11/20 05:10 Lactate Dehydrogenase 345 units/L (91-180) H 12/09/20 04:25 Troponin T 0.108 ng/mL (0.00-0.029) H* 12/08/20 23:41 C-Reactive Protein 1.20 mg/dL (0.00-1.30) 12/09/20 04:25 NT-Pro-B Natriuret Pep 58790 pg/mL (0-900) H 12/10/20 04:38 Total Protein 6.6 g/dL (6.3-8.2) 12/11/20 05:10 Albumin 3.2 g/dL (3.9-5) L 12/11/20 05:10 Albumin/Globulin Ratio 0.9 % 12/11/20 05:10 Triglycerides 176 mg/dL (2-149) H 12/08/20 23:41 Cholesterol 202 mg/dL (50-199) H 12/08/20 23:41 LDL Cholesterol Direct 128 mg/dL (50-130) 12/08/20 23:41 HDL Cholesterol 47 mg/dL (40-59) 12/08/20 23:41 Cholesterol/HDL Ratio 4.29 % 12/08/20 23:41 Procalcitonin 0.14 ng/mL (<0.15) 12/09/20 04:25 Nasal Screen MRSA (PCR) Positive (Negative) 12/10/20 06:30 Coronavirus (PCR) Negative (Negative) 12/09/20 09:53 Arce/IV: Voiding Method Indwelling Catheter Active Medications - Current Medications Current Medications: Generic Name Dose Route Start Last Admin Trade Name Freq PRN Reason Stop Dose Admin Amlodipine Besylate 10 mg 12/09/20 10:00 12/10/20 09:29 Amlodipine 10 Mg Tab PO 10 mg DAILY ANI Administration Aspirin 325 mg 12/09/20 10:00 12/10/20 09:28 Aspirin 325 Mg Tab PO 325 mg QDAY ANI Administration Atorvastatin Calcium 40 mg 12/09/20 22:00 12/10/20 22:04 Atorvastatin 40 Mg Tab PO 40 mg QHS ANI Administration Clonidine HCl 0.2 mg 12/09/20 10:00 12/10/20 22:03 Clonidine 0.2 Mg Tab PO 0.2 mg BID ANI Administration Colchicine 0.6 mg 12/09/20 02:25 Colchicine 0.6 Mg Tab PO QDAY PRN Gout pain Dextrose 50 ml 12/09/20 02:11 Dextrose 50% In Water (25gm) 50 Ml Syringe IV Q30MIN PRN Hypoglycemia Protocol Furosemide 40 mg 12/09/20 06:00 12/11/20 06:46 Furosemide 40 Mg/4 Ml Inj IV 40 mg BID@0600,1800 ANI Administration Gabapentin 600 mg 12/09/20 10:00 12/10/20 09:28 Gabapentin 300 Mg Cap PO 600 mg DAILY ANI Administration Heparin Sodium (Porcine) 5,000 unit 12/09/20 06:00 12/11/20 06:45 Heparin 5,000 Unit/1 Ml Vial SUB-Q 5,000 unit Q8HR ANI Administration Hydralazine HCl 50 mg 12/09/20 14:00 12/11/20 06:45 Hydralazine 25 Mg Tab PO 50 mg Q8HR ANI Administration Hydralazine HCl 10 mg 12/09/20 09:30 Hydralazine 20 Mg/1 Ml Inj IV Q4H PRN htn Insulin Human Lispro 0 unit 12/09/20 07:30 12/11/20 08:32 Insulin Lispro 100 Unit/Ml SUB-Q Not Given ACHS ANI Protocol Metoprolol Tartrate 50 mg 12/09/20 10:00 12/10/20 23:07 Metoprolol Tartrate 50 Mg Tab PO 50 mg BID ANI Administration Pantoprazole Sodium 40 mg 12/09/20 07:30 12/11/20 06:45 Pantoprazole 40 Mg Tab PO 40 mg QDAC ANI Administration Tamsulosin HCl 0.4 mg 12/11/20 05:32 12/11/20 06:45 Tamsulosin 0.4 Mg Cap PO 0.4 mg QHS ANI Administration Nutrition/Malnutrition Assess - Dietary Evaluation Nutrition/Malnutrition Findings: Nutrition Notes Start: 12/09/20 13:38 Freq: Status: Active Protocol: Document 12/09/20 13:38 CW (Rec: 12/09/20 13:42 CW [id number]) Nutrition Notes Need for Assessment generated from: MD Order,Education Initial or Follow up Brief Note Current Diagnosis CKD(stage I-IV),Heart Failure, Respiratory Failure, Hyperlipidemia Other Pertinent Diagnosis Covid PUI, pneu, SOB, CA Current Diet Cardiac Diet Labs/Tests BG 226 BUN 36 Cr 4.1 TF 176 Chol 202 BP 179/89 Pertinent Medications Humalog Glipizide Lantus Lasix Decadron Height 5 ft 8 in Weight 121.8 kg [place] Body Weight (kg) 70.00 BMI 40.8 Weight Status Morbidly Obese Subjective/Other Information MD consult for diet education. Pt has had elevate BP and BG levels on admission indicating need for heart heathy consistent carbohydrate diet. Pt did n9ot answer phone x2 for diet education Nutrition Intervention Change Diet Order: Change diet to Renal Consistent Carbohydrate Diet Goal #1 Understand importance of nutrition therapy Anticipated Discharge Needs: Renal consistent carbohydrate diet Follow-Up By: 12/12/20 Additional Comments F/U for diet education
[2020-12-11] MEDS ORDERED: TAMSULOSIN 0.4 MG CAP PO SCH (10:00)
[2020-12-11] MEDS: cloNIDine 0.2 MG TAB PO SCH ×2 (10:47→22:54)
[2020-12-11] MEDS: amLODIPine 10 MG TAB PO SCH (10:47)
[2020-12-11] MEDS: GABAPENTIN 300 MG CAP PO SCH (10:47)
[2020-12-11] MEDS: ASPIRIN 325 MG TAB PO SCH (10:48)
--- NOTE | 2020-12-11 11:21 | Progress Note ---
Assessment and Plan Acute respiratory failure Volume overload: Likely combination of systolic heart failure and renal failure Uncontrolled Htn DM Nonspecific troponin elevation in setting of renal failure Acute on CKD Recommend: Check BNP Continue diuresis with IV furosemide while monitoring renal function Eventual myocardial ischemia evaluation Subjective Date of service: 12/11/20 Interval history: Pt transferred to telemetry. Dyspnea much improved. Objective Vital Signs Temp Pulse Resp BP BP Pulse Ox 12/11/20 08:33 58 L 12/11/20 08:11 98.7 F 58 L 16 134/71 98 12/11/20 08:03 99 12/11/20 06:45 63 135/68 12/11/20 04:15 97.3 F L 63 20 135/68 97 12/11/20 04:00 63 12/11/20 00:00 62 12/10/20 23:33 97.9 F 61 20 155/78 100 12/10/20 23:10 136/75 100 12/10/20 23:07 56 L 160/86 12/10/20 23:01 57 L 16 136/75 100 12/10/20 22:56 12 100 12/10/20 22:51 56 L 19 136/75 100 12/10/20 22:17 53 L 136/75 12/10/20 22:04 57 L 139/74 12/10/20 22:03 57 L 139/74 12/10/20 22:00 53 L 10 L 139/74 98 12/10/20 21:00 52 L 8 L 132/71 98 12/10/20 20:01 98 12/10/20 20:00 97.3 F L 55 L 10 L 136/70 98 12/10/20 19:01 57 L 10 L 126/71 99 12/10/20 18:00 56 L 15 126/68 100 12/10/20 17:01 59 L 13 119/61 92 12/10/20 16:00 53 L 10 L 117/70 98 12/10/20 15:40 61 12/10/20 15:22 92 H 12/10/20 15:03 92 H 31 H 94 12/10/20 15:00 53 L 10 L 121/69 99 12/10/20 14:00 55 L 10 L 114/66 99 12/10/20 13:00 56 L 11 L 149/84 99 12/10/20 12:00 66 16 120/63 99 - Physical Examination Abdomen: Positive: Soft Extremities: Present: +1 Edema - Labs and Meds Cardiac Enzymes 12/11/20 Range/Units 05:10 AST 13 (5-40) units/L Comprehensive Metabolic Panel 12/11/20 Range/Units 05:10 Sodium 139 (137-145) mmol/L Potassium 4.5 (3.6-5.0) mmol/L Chloride 105.7 (98-107) mmol/L Carbon Dioxide 23 (22-30) mmol/L BUN 48 H (9-20) mg/dL Creatinine 4.5 H (0.8-1.3) mg/dL Glucose 49 L (75-100) mg/dL Calcium 8.2 L (8.4-10.2) mg/dL AST 13 (5-40) units/L ALT 29 (7-56) units/L Alkaline Phosphatase 65 (35-129) units/L Total Protein 6.6 (6.3-8.2) g/dL Albumin 3.2 L (3.9-5) g/dL
[2020-12-11] MEDS: METOPROLOL TARTRATE 50 MG TAB PO SCH ×2 (11:57→22:53)
--- NOTE | 2020-12-11 13:36 | Progress Note ---
Assessment and Plan Impression: * Acute kidney injury on chronic kidney disease --Baseline renal function unknown; followed by Dr. Tellez * Acute hypoxic respiratory failure --COVID 19 negative * Hypertension * Type II DM * Metabolic acidosis * Urinary retention Plan: * No acute indication for renal replacement therapy at this time. * Continue IV diuresis * Napier catheter ordered due to urinary retention. Now dislodged. sequins stringer to bladder scan * Continue Flomax daily * Await UA and UPCR - ordered but pending collection; discussed with RN * Serologic work up pending * Renal u/s reviewed - nml size/echogenicity * Cardiology recommendations reviewed; TTE pending * Dose medications for renal function * AM labs Subjective Date of service: 12/11/20 Interval history: Patient has no complaints. Reports napier "slipped out" this afternoon. Objective - Vital Signs Vital signs: Vital Signs - 12hr 12/11/20 12/11/20 12/11/20 04:00 04:15 06:45 Temperature 97.3 F L Pulse Rate 63 63 63 Respiratory 20 Rate Blood Pressure 135/68 135/68 Blood Pressure [Left] O2 Sat by Pulse 97 Oximetry 12/11/20 12/11/20 12/11/20 08:03 08:11 08:33 Temperature 98.7 F Pulse Rate 58 L 58 L Respiratory 16 Rate Blood Pressure Blood Pressure 134/71 [Left] O2 Sat by Pulse 99 98 Oximetry 12/11/20 11:57 Temperature Pulse Rate 54 L Respiratory Rate Blood Pressure Blood Pressure [Left] O2 Sat by Pulse Oximetry - General Appearance General appearance: well-developed, well-nourished EENT: ATNC Respiratory: Present: Clear to Ascultation, Other (breathing comfortably on room air) Cardiology: regular, S1S2 Gastrointestinal: normal, no tenderness, no distended Integumentary: no rash, warm and dry Neurologic: no focal deficit Musculoskeletal: other (1+ edema) Psychiatric: cooperative - Lab 12/08/20 23:41 12/11/20 05:10 Most recent lab results Calcium 8.2 mg/dL (8.4-10.2) L 12/11/20 05:10 Magnesium 2.30 mg/dL (1.7-2.3) 12/11/20 05:10 Medications & Allergies - Medications Allergies/Adverse Reactions: Allergies No Known Allergies Allergy (Verified 09/01/18 16:18) Home Medications: Home Medications Medication Instructions Recorded Confirmed Last Taken Type Lantus Solostar 65 units SQ BID 10/27/15 12/10/20 12/07/20 09:00 History glipiZIDE [Glucotrol] 10 mg PO QDAY 10/27/15 12/10/20 12/07/20 09:00 History amLODIPine [Norvasc] 10 mg PO DAILY 03/01/16 12/10/20 12/07/20 09:00 History 10 mg lisinopriL [Zestril TAB] 40 mg PO DAILY 03/01/16 12/10/20 12/07/20 09:00 History Colchicine 0.6 mg PO PRN PRN 09/01/18 12/10/20 12/07/20 09:00 History Gabapentin [Neurontin] 600 mg PO DAILY 09/01/18 12/10/20 12/07/20 09:00 History Insulin Lispro [HumaLOG VIAL] 0 units SQ TID 09/01/18 12/10/20 12/07/20 21:00 History Metoprolol [Lopressor TAB] 50 mg PO BID 09/01/18 12/10/20 12/07/20 09:00 History Pioglitazone HCl [Actos] 30 mg PO DAILY 09/01/18 12/10/20 12/07/20 09:00 History Pravastatin [Pravachol] 40 mg PO QHS 09/01/18 12/10/20 12/07/20 21:00 History cloNIDine [Catapres] 0.2 mg PO BID 09/01/18 12/10/20 12/07/20 09:00 History hydroCHLOROthiazide [HCTZ] 25 mg PO QDAY 09/01/18 12/10/20 12/07/20 09:00 Hi story Omeprazole 20 mg PO QDAY #20 capsule. 11/05/19 12/10/20 12/07/20 08:00 Rx Ondansetron [Zofran Odt] 4 mg PO Q8HR PRN #12 tab.rapdis 11/05/19 12/10/20 11/16/20 12:00 Rx Active Medications: Generic Name Dose Route Start Last Admin Trade Name Freq PRN Reason Stop Dose Admin Amlodipine Besylate 10 mg 12/09/20 10:00 12/11/20 10:47 Amlodipine 10 Mg Tab PO 10 mg DAILY ANI Administration Aspirin 325 mg 12/09/20 10:00 12/11/20 10:48 Aspirin 325 Mg Tab PO 325 mg QDAY ANI Administration Atorvastatin Calcium 40 mg 12/09/20 22:00 12/10/20 22:04 Atorvastatin 40 Mg Tab PO 40 mg QHS ANI Administration Clonidine HCl 0.2 mg 12/09/20 10:00 12/11/20 10:47 Clonidine 0.2 Mg Tab PO 0.2 mg BID ANI Administration Colchicine 0.6 mg 12/09/20 02:25 Colchicine 0.6 Mg Tab PO QDAY PRN Gout pain Dextrose 50 ml 12/09/20 02:11 Dextrose 50% In Water (25gm) 50 Ml Syringe IV Q30MIN PRN Hypoglycemia Protocol Furosemide 40 mg 12/09/20 06:00 12/11/20 06:46 Furosemide 40 Mg/4 Ml Inj IV 40 mg BID@0600,1800 ANI Administration Gabapentin 600 mg 12/09/20 10:00 12/11/20 10:47 Gabapentin 300 Mg Cap PO 600 mg DAILY ANI Administration Heparin Sodium (Porcine) 5,000 unit 12/09/20 06:00 12/11/20 06:45 Heparin 5,000 Unit/1 Ml Vial SUB-Q 5,000 unit Q8HR ANI Administration Hydralazine HCl 50 mg 12/09/20 14:00 12/11/20 06:45 Hydralazine 25 Mg Tab PO 50 mg Q8HR ANI Administration Hydralazine HCl 10 mg 12/09/20 09:30 Hydralazine 20 Mg/1 Ml Inj IV Q4H PRN htn Insulin Human Lispro 0 unit 12/09/20 07:30 12/11/20 11:57 Insulin Lispro 100 Unit/Ml SUB-Q Not Given ACHS ANI Protocol Metoprolol Tartrate 50 mg 12/09/20 10:00 12/11/20 11:57 Metoprolol Tartrate 50 Mg Tab PO Not Given BID ANI Pantoprazole Sodium 40 mg 12/09/20 07:30 12/11/20 06:45 Pantoprazole 40 Mg Tab PO 40 mg QDAC ANI Administration Tamsulosin HCl 0.4 mg 12/11/20 05:32 12/11/20 06:45 Tamsulosin 0.4 Mg Cap PO 0.4 mg QHS ANI Administration
--- NOTE | 2020-12-11 13:47 | Progress Note ---
Assessment and Plan Cultures: Covid PCR: Negative A/P: 70-year-old man past medical history hypertension, diabetes, CKD admitted with acute respiratory failure #Acute hypoxemic respiratory failure: Secondary to fluid overload versus pneumonia. Currently on BiPAP. Pending COVID-19. Normal procalcitonin. #KIMBERLEY on CKD: Renally dose medications. #Diabetes: tight glycemic control for best outcomes. Recs: -Follow-up echo read Thank you for the consult, we will sign off. Please call with questions. Hernan Pfeiffer MD [facility] ([facility] O: [phone] F: [phone] Subjective Date of service: 12/11/20 Interval history: Afebrile, no acute change. Objective - Exam Narrative Exam: Physical exam deferred to reduce risk of transmission of COVID-19. Please refer to primary team's note. - Constitutional Vitals: Vital Signs Temp Pulse Resp BP Pulse Ox 98.7 F 54 L 16 134/71 98 12/11/20 08:11 12/11/20 11:57 12/11/20 08:11 12/11/20 08:11 12/11/20 08:11 Temperature -Last 24 Hours Temperature 98.7 F Temperature 97.3 F Temperature 97.9 F Temperature 97.3 F - Labs CBC & Chem 7: 12/08/20 23:41 12/11/20 05:10 Labs: Abnormal lab results 12/10/20 12/10/20 12/11/20 Range/Units 08:29 16:54 05:10 BUN 48 H (9-20) mg/dL Creatinine 4.5 H (0.8-1.3) mg/dL Glucose 49 L (75-100) mg/dL POC Glucose 53 L 54 L (70-105) mg/dL Calcium 8.2 L (8.4-10.2) mg/dL Albumin 3.2 L (3.9-5) g/dL
[2020-12-11 16:03] LABS: Bacteria,Urine 1+ /HPF (Negative); Bilirubin,Urine NEG (Negative); Blood,Urine NEG (Negative); Color,Urine Straw (Yellow); Urobilinogen,Urine < 2.0 mg/dL (<2.0)
[2020-12-11 16:14] LABS: Creatinine,Urine 39.7 mg/dL (0.1-20.0); Protein/Creatinine Ratio,Urine 1.36
[2020-12-11] MEDS: MUPIROCIN 2% OINT 22 GM NS SCH (22:55)
[2020-12-12] MEDS: hydrALAZINE 25 MG TAB PO SCH ×2 (06:20→14:57)
[2020-12-12] MEDS: HEPARIN 5,000 UNIT/1 ML VIAL SUB-Q SCH ×2 (06:21→14:57)
[2020-12-12] MEDS: FUROSEMIDE 40 MG/4 ML INJ IV SCH (06:21)
[2020-12-12] MEDS: cloNIDine 0.2 MG TAB PO SCH (09:06)
[2020-12-12] MEDS: METOPROLOL TARTRATE 50 MG TAB PO SCH (09:06)
[2020-12-12] MEDS: PANTOPRAZOLE 40 MG TAB PO SCH (09:06)
[2020-12-12] MEDS: ASPIRIN 325 MG TAB PO SCH (09:06)
[2020-12-12] MEDS: amLODIPine 10 MG TAB PO SCH (09:07)
[2020-12-12] MEDS: INSULIN LISPRO 100 UNIT/ML SUB-Q SCH ×2 (09:07→12:09)
[2020-12-12] MEDS: GABAPENTIN 300 MG CAP PO SCH (09:07)
[2020-12-12] MEDS: MUPIROCIN 2% OINT 22 GM NS SCH (10:38)
--- NOTE | 2020-12-12 10:39 | Progress Note ---
Subjective Date of service: 12/12/20 Principal diagnosis: jaun Interval history: Impression: * Acute kidney injury on chronic kidney disease --Baseline renal function unknown; followed by Dr. Tellez * Acute hypoxic respiratory failure * cardiomyopathy--Acute sys chf * Hypertension\\ * Type II DM * Metabolic acidosis * Urinary retention Plan: * No acute indication for renal replacement therapy at this time. cr is stable today * Continue IV diuresis * Continue Flomax daily * noted UA and UPCR - * Renal u/s reviewed - nml size/echogenicity * Cardiology recommendations reviewed; * Dose medications for renal function * AM labs * stable from renal standpoint, home once volume controlled per cards Subjective Interval history: Patient has no complaints. Reports napier "slipped out" this afternoon. Objective General appearance: well-developed, well-nourished EENT: ATNC Respiratory: Present: Clear to Ascultation, Other (breathing comfortably on room air) Cardiology: regular, S1S2 Gastrointestinal: normal, no tenderness, no distended Integumentary: no rash, warm and dry Neurologic: no focal deficit Musculoskeletal: other (1+ edema) Psychiatric: cooperative Objective - Vital Signs Vital signs: Vital Signs - 12hr 12/11/20 12/11/20 12/11/20 22:53 22:54 23:34 Temperature 98.0 F Pulse Rate 61 61 63 Respiratory 20 Rate Blood Pressure 138/67 138/67 151/80 O2 Sat by Pulse 98 Oximetry 12/12/20 12/12/20 12/12/20 00:00 04:00 04:26 Temperature 98.6 F Pulse Rate 60 60 68 Respiratory 18 Rate Blood Pressure 154/84 O2 Sat by Pulse 99 Oximetry 12/12/20 12/12/20 12/12/20 06:20 08:10 09:06 Temperature Pulse Rate 72 65 Respiratory Rate Blood Pressure 154/84 139/81 O2 Sat by Pulse 96 Oximetry 12/12/20 09:07 Temperature Pulse Rate 65 Respiratory Rate Blood Pressure 139/81 O2 Sat by Pulse Oximetry - Lab 12/08/20 23:41 12/12/20 04:45 Most recent lab results Calcium 8.0 mg/dL (8.4-10.2) L 12/12/20 04:45 Magnesium 2.30 mg/dL (1.7-2.3) 12/11/20 05:10 Urine Creatinine 39.7 mg/dL (0.1-20.0) H 12/11/20 Unknown Urine Total Protein 54 mg/dL (5-11.8) H 12/11/20 Unknown Medications & Allergies - Medications Allergies/Adverse Reactions: Allergies No Known Allergies Allergy (Verified 09/01/18 16:18) Home Medications: Home Medications Medication Instructions Recorded Confirmed Last Taken Type Lantus Solostar 65 units SQ BID 10/27/15 12/10/20 12/07/20 09:00 History glipiZIDE [Glucotrol] 10 mg PO QDAY 10/27/15 12/10/20 12/07/20 09:00 History amLODIPine [Norvasc] 10 mg PO DAILY 03/01/16 12/10/20 12/07/20 09:00 History 10 mg lisinopriL [Zestril TAB] 40 mg PO DAILY 03/01/16 12/10/20 12/07/20 09:00 History Colchicine 0.6 mg PO PRN PRN 09/01/18 12/10/20 12/07/20 09:00 History Gabapentin [Neurontin] 600 mg PO DAILY 09/01/18 12/10/20 12/07/20 09:00 History Insulin Lispro [HumaLOG VIAL] 0 units SQ TID 09/01/18 12/10/20 12/07/20 21:00 History Metoprolol [Lopressor TAB] 50 mg PO BID 09/01/18 12/10/20 12/07/20 09:00 History Pioglitazone HCl [Actos] 30 mg PO DAILY 09/01/18 12/10/20 12/07/20 09:00 History Pravastatin [Pravachol] 40 mg PO QHS 09/01/18 12/10/20 12/07/20 21:00 History cloNIDine [Catapres] 0.2 mg PO BID 09/01/18 12/10/20 12/07/20 09:00 History hydroCHLOROthiazide [HCTZ] 25 mg PO QDAY 09/01/18 12/10/20 12/07/20 09:00 History Omeprazole 20 mg PO QDAY #20 capsule. 11/05/19 12/10/20 12/07/20 08:00 Rx Ondansetron [Zofran Odt] 4 mg PO Q8HR PRN #12 tab.rapdis 11/05/19 12/10/20 11/16/20 12:00 Rx Active Medications: Generic Name Dose Route Start Last Admin Trade Name Yamini PRN Reason Stop Dose Admin Amlodipine Besylate 10 mg 12/09/20 10:00 12/12/20 09:07 Amlodipine 10 Mg Tab PO 10 mg DAILY ANI Administration Aspirin 325 mg 12/09/20 10:00 12/12/20 09:06 Aspirin 325 Mg Tab PO 325 mg QDAY ANI Administration Atorvastatin Calcium 40 mg 12/09/20 22:00 12/11/20 22:53 Atorvastatin 40 Mg Tab PO 40 mg QHS ANI Administration Clonidine HCl 0.2 mg 12/09/20 10:00 12/12/20 09:06 Clonidine 0.2 Mg Tab PO 0.2 mg BID ANI Administration Colchicine 0.6 mg 12/09/20 02:25 Colchicine 0.6 Mg Tab PO QDAY PRN Gout pain Dextrose 50 ml 12/09/20 02:11 Dextrose 50% In Water (25gm) 50 Ml Syringe IV Q30MIN PRN Hypoglycemia Protocol Furosemide 40 mg 12/09/20 06:00 12/12/20 06:21 Furosemide 40 Mg/4 Ml Inj IV 40 mg BID@0600,1800 ANI Administration Gabapentin 600 mg 12/09/20 10:00 12/12/20 09:07 Gabapentin 300 Mg Cap PO 600 mg DAILY ANI Administration Heparin Sodium (Porcine) 5,000 unit 12/09/20 06:00 12/12/20 06:21 Heparin 5,000 Unit/1 Ml Vial SUB-Q 5,000 unit Q8HR ANI Administration Hydralazine HCl 50 mg 12/09/20 14:00 12/12/20 06:20 Hydralazine 25 Mg Tab PO 50 mg Q8HR ANI Administration Hydralazine HCl 10 mg 12/09/20 09:30 Hydralazine 20 Mg/1 Ml Inj IV Q4H PRN htn Insulin Human Lispro 0 unit 12/09/20 07:30 12/12/20 09:07 Insulin Lispro 100 Unit/Ml SUB-Q Not Given ACHS ANI Protocol Metoprolol Tartrate 50 mg 12/09/20 10:00 12/12/20 09:06 Metoprolol Tartrate 50 Mg Tab PO 50 mg BID ANI Administration Mupirocin 1 applic 12/11/20 22:00 12/11/20 22:55 Mupirocin 2% Oint 22 Gm NS 1 applic BID ANI Administration Pantoprazole Sodium 40 mg 12/09/20 07:30 12/12/20 09:06 Pantoprazole 40 Mg Tab PO 40 mg QDAC ANI Administration Tamsulosin HCl 0.4 mg 12/11/20 05:32 12/11/20 22:53 Tamsulosin 0.4 Mg Cap PO 0.4 mg QHS ANI Administration
--- NOTE | 2020-12-12 13:19 | Progress Note ---
Assessment and Plan - Patient Problems (1) Volume overload Current Visit: Yes Status: Acute Plan to address problem: Patient presented with shortness of breath and volume overload. This was in the setting of uncontrolled hypertension and acute on chronic renal failure with a creatinine rising to 4.4 from a baseline of 2.1. On this presentation, the echocardiogram shows well-preserved left ventricular systolic function with ejection fraction 50 to 55%. Continue conservative management and supportive measures. Eventually, will recommend a predischarge or early outpatient myocardial perfusion study. Subjective Date of service: 12/12/20 Principal diagnosis: jaun Interval history: Patient is comfortable, no cardiac complaints, looks and feels better. He is breathing comfortably without BiPAP. Objective Vital Signs Temp Pulse Pulse Resp BP BP Pulse Ox 12/12/20 09:07 65 139/81 12/12/20 09:06 65 139/81 12/12/20 08:10 65 96 12/12/20 07:15 97.5 F L 65 18 139/81 96 12/12/20 06:20 72 154/84 12/12/20 04:26 98.6 F 68 18 154/84 99 12/12/20 04:00 60 12/12/20 00:00 60 12/11/20 23:34 98.0 F 63 20 151/80 98 12/11/20 22:54 61 138/67 12/11/20 22:53 61 138/67 12/11/20 20:27 99 12/11/20 20:00 62 12/11/20 19:04 98.6 F 61 18 138/67 95 12/11/20 16:26 98.6 F 54 L 120/64 12/11/20 16:14 52 L - Physical Examination General: No Apparent Distress HEENT: Positive: PERRL Neck: Positive: neck supple Cardiac: Positive: Reg Rate and Rhythm Lungs: Positive: Decreased Breath Sounds Neuro: Positive: Grossly Intact Abdomen: Positive: Soft Skin: Positive: Clear Extremities: Absent: edema - Labs and Meds Comprehensive Metabolic Panel 12/12/20 Range/Units 04:45 Sodium 135 L (137-145) mmol/L Potassium 4.6 (3.6-5.0) mmol/L Chloride 102.6 (98-107) mmol/L Carbon Dioxide 24 (22-30) mmol/L BUN 50 H (9-20) mg/dL Creatinine 4.4 H (0.8-1.3) mg/dL Glucose 99 (75-100) mg/dL Calcium 8.0 L (8.4-10.2) mg/dL
--- NOTE | 2020-12-12 14:02 | Discharge Summary ---
Providers - Providers Date of Admission: 12/10/20 21:46 Date of discharge: 12/12/20 Attending physician: MANDO ALATORRE 12/09/20 02:08 Consult to Physician [CONS] Routine Comment: Consulting Provider: JIM TREJO Physician Instructions: Reason For Exam: Elevated troponin 12/09/20 02:11 Consult to Dietitian/Nutrition [CONS] Routine Physician Instructions: Reason For Exam: Reason for Consult: Diet education 12/09/20 02:22 Consult to Physician [CONS] Routine Comment: Consulting Provider: LEE MANZANARES Physician Instructions: Reason For Exam: Renal failure 12/09/20 05:26 Consult to Physician [CONS] Routine Comment: Consulting Provider: ELAINE PULIDO Physician Instructions: Reason For Exam: pui. pna Primary care physician: YAZMIN PACHECO DO Hospitalization Reason for admission: Acute hypoxic respiratory failure on BiPAP /worsening shortness of breath Condition: Stable Pertinent studies: Chest x-ray; mild multifocal airspace disease trace amount of fluid along the minor fissure, mild edema Renal ultrasound; no significant abnormality Echocardiogram; EF 50 to 55%Chest x-ray; mild patchy multifocal airspace disease with central perihilar cuffing trace amount of fluid along the minor fissure findings reflect underlying edema no pleural effusion no pneumothorax Hospital course: 71-year-old male patient with multiple medical problems like hypertension diabetes chronic kidney disease stage III hyperlipidemia was admitted through e mergency room with worsening shortness of breath and acute hypoxic respiratory failure requiring BiPAP., Patient was initially evaluated noted to have chest congestion and edema. Patient was admitted to the hospital subsequently evaluated by cardiology, underwent echocardiogram which shows normal ejection fraction 50 to 55%. Patient's medications optimized. Patient also has chronic kidney disease stage III evaluated by nephrology, renal ultrasound no acute abnormalities, medications optimized Patient is on very high-dose of insulin at home however went into hypoglycemia during the hospital stay oral hypoglycemics and long-acting insulin held, sugars closely monitored medications optimized. Patient symptoms slowly but gradually improved, today he is comfortable no new complaints vital signs stable Physical examination is unremarkable prior to discharge Patient is hemodynamically and clinically stable at discharge Discharge diagnosis; Hypoglycemia Type 2 diabetes mellitus Acute hypoxic respiratory failure/BiPAP Acute diastolic congestive heart failure Nonspecific elevation of troponin Hypertension Morbid obesity BMI 40.8 Stable at discharge Disposition: TO HOME OR SELFCARE Final Discharge Diagnosis (Prints w/discharge instructions): Acute hypoxic respiratory failure requiring BiPAP. Type 2 diabetes mellitus. Hypoglycemia. Acute on chronic kidney failure stage III. Nonspecific elevation of troponin/non-ST elevation IA type II. SIRS without organ dysfunction. Hypertension. Morbid obesity BMI 43.0 Time spent for discharge: 35 min Core Measure Documentation - Palliative Care Palliative Care/ Comfort Measures: Not Applicable - Core Measures Any of the following diagnoses?: none Exam - Constitutional Vitals: Temp Pulse Resp BP Pulse Ox 98.0 F 54 L 20 145/79 99 12/12/20 11:57 12/12/20 11:57 12/12/20 11:57 12/12/20 11:57 12/12/20 11:57 General appearance: Present: no acute distress, well-nourished, obese (Morbidly obese) - EENT Eyes: Present: PERRL, EOM intact - Neck Neck: Present: supple, normal ROM - Respiratory Respiratory effort: normal Respiratory: bilateral: diminished, negative: rales, rhonchi - Cardiovascular Rhythm: regular Heart Sounds: Present: S1 & S2 - Extremities Extremities: no ischemia, No edema - Abdominal General gastrointestinal: Present: soft, non-tender, non-distended, normal bowel sounds - Integumentary Integumentary: Present: clear, warm - Musculoskeletal Musculoskeletal: strength equal bilaterally - Psychiatric Psychiatric: appropriate mood/affect, cooperative - Neurologic Neurologic: CNII-XII intact, moves all extremities Plan Activity: advance as tolerated Diet: diabetic, other (cardiac diet) Additional Instructions: Your blood sugars are in the lower range, you did not need any insulin during the hospital stay, check with primary care physician before resuming your insulin and glipizide other diabetic medications. If you have worsening symptoms contact MD or go to emergency room. Advised dietary modification exercise as tolerated and weight reduction when stable Follow up with: YAZMIN PACHECO DO [Primary Care Provider] - 7 Days JOESPH VINES MD [Staff Physician] - 7 Days YANIRA LEBRON MD [Staff Physician] - 7 Days Prescriptions: Mupirocin [Bactroban 2% OINT] 1 applic NS BID #1 tube Tamsulosin [Flomax] 0.4 mg PO QHS #30 capsule Hydralazine HCl 50 mg PO TID #90 tablet
[2020-12-12 15:05] VITALS: BP 137/76
== END 2020-12-12 16:57 | disposition home or self-care (01) | DRG 682 ==
LOC: ED 22:53 → UNDOADMOB 12-09 02:03 → IMCU 12-09 02:03 → INTOOBSV 12-09 11:23 → OBSVTOIN 12-09 11:23 → UNDOADMOB 12-10 21:07 → 4A 12-10 21:07 → INTOOBSV 12-10 21:07 → OBSVTOIN 12-10 21:07 → IMCU 12-10 21:46 → OBSVTOIN 12-10 21:46 → 4A 12-10 23:19
PROVIDERS: ADMIT Hospitalist; ATTEND Internal Medicine
PROC: 02HV33Z Insertion of Infusion Device into Superior Vena Cava, Percutaneous Approach (ICD-10-PCS; principal; 2020-12-09)
PROC: 5A09357 Assistance with Respiratory Ventilation, Less than 24 Consecutive Hours, Continuous Positive Airway Pressure (ICD-10-PCS; 2020-12-09)
DX: N17.0 Acute kidney failure with tubular necrosis (principal); J96.01 Acute respiratory failure with hypoxia; J18.9 Pneumonia, unspecified organism; I50.31 Acute diastolic (congestive) heart failure; I21.A1 Myocardial infarction type 2; Z68.41 Body mass index [BMI] 40.0-44.9, adult; R65.10 Systemic inflammatory response syndrome (SIRS) of non-infectious origin without acute organ dysfunction; I13.0 Hypertensive heart and chronic kidney disease with heart failure and stage 1 through stage 4 chronic kidney disease, or unspecified chronic kidney disease; E87.2 Acidosis; I42.9 Cardiomyopathy, unspecified; Z20.822 Contact with and (suspected) exposure to COVID-19; E66.01 Morbid (severe) obesity due to excess calories; N18.30 Chronic kidney disease, stage 3 unspecified; E87.70 Fluid overload, unspecified; E11.22 Type 2 diabetes mellitus with diabetic chronic kidney disease; E78.5 Hyperlipidemia, unspecified; K21.9 Gastro-esophageal reflux disease without esophagitis; E11.649 Type 2 diabetes mellitus with hypoglycemia without coma; Z79.4 Long term (current) use of insulin; Z79.899 Other long term (current) drug therapy; Z79.891 Long term (current) use of opiate analgesic; Z79.01 Long term (current) use of anticoagulants; Z91.013 Allergy to seafood
CPT/HCPCS: 36415; 71046; 76770; 80048; 80053; 80061; 81001; 82570; 82728; 82947; 82962; 83036; 83615; 83735; 83880; 84145; 84156; 84484; 85025; 85379; 86021; 86140; 86160; 86334; 87641; 93005; 93306; 94660; 96365; 96367; 96375; G0378; A9270-GY; J0360; J0456; J0696; J1100; J1644; J1815; J1940; U0003